=== PATIENT | female | born 2000 | race Caucasian/White ===

== ENCOUNTER 2020-04-06 14:30 | Outpatient (REF) | payer OTHER, SELFPAY ==
[2020-04-07 01:46] LABS: CT PCR NOT DETECTED (Not Detect.); NG PCR NOT DETECTED (Not Detect.)
[2020-04-07 11:24] LABS: BV Int Neg Control Negative (Negative); BV Int Pos Control Positive (Positive)
== END 2020-04-06 14:31 | disposition home or self-care (01) ==
LOC: HO.LAB 14:30
PROVIDERS: Visit Provider Advanced Practice Midwife
DX: Z11.3 Encounter for screening for infections with a predominantly sexual mode of transmission (principal); N89.8 Other specified noninflammatory disorders of vagina; T83.32XA Displacement of intrauterine contraceptive device, initial encounter
CPT/HCPCS: 87480; 87491; 87510; 87591; 87660; 99212

== ENCOUNTER 2020-04-12 13:53 | Outpatient (REF) | payer OTHER, SELFPAY | END 2020-04-12 13:54 | disposition home or self-care (01) | LOC: HO.LAB 13:53 | PROVIDERS: Visit Provider Obstetrics & Gynecology | DX: Z01.419 Encounter for gynecological examination (general) (routine) without abnormal findings (principal); B37.3 Candidiasis of vulva and vagina | CPT/HCPCS: 88142 ==

== ENCOUNTER 2020-04-17 13:16 | Outpatient (REF) | payer OTHER, SELFPAY ==
--- NOTE | 2020-04-17 13:22 | US_ITS ---
EXAMINATION: US PELVIS COMPLETE US TRANSVAGINAL CLINICAL INFORMATION: Displacement of intrauterine contraceptive device. COMPARISON: None TECHNIQUE: Transabdominal and transvaginal ultrasound of the pelvis is performed. FINDINGS: The uterus is anteverted, anteflexed measuring 10.8 cm in length, 3.7 cm in AP and 4.4 cm in transverse dimension. An intrauterine contraceptive device is visualized, however, the arms of the IUD are not extended as expected. Right ovary measures 3.8 x 2.2 x 2.7 cm and volume 11.8 mL. It appears unremarkable. Left ovary measures 3.4 x 2.3 x 2.5 cm and volume 10.2 mL. It appears unremarkable. There is minimal free fluid in lower uterine segment and cervix. No fluid seen in the cul-de-sac. US/US transvaginal IMPRESSION: Intrauterine IUD is noted, however, the arms of the IUD are not well expanded. There is minimal free fluid in the lower uterine segment/cervix. The ovaries are unremarkable.
--- NOTE | 2020-04-17 13:22 | US_ITS ---
EXAMINATION: US PELVIS COMPLETE US TRANSVAGINAL CLINICAL INFORMATION: Displacement of intrauterine contraceptive device. COMPARISON: None TECHNIQUE: Transabdominal and transvaginal ultrasound of the pelvis is performed. FINDINGS: The uterus is anteverted, anteflexed measuring 10.8 cm in length, 3.7 cm in AP and 4.4 cm in transverse dimension. An intrauterine contraceptive device is visualized, however, the arms of the IUD are not extended as expected. Right ovary measures 3.8 x 2.2 x 2.7 cm and volume 11.8 mL. It appears unremarkable. Left ovary measures 3.4 x 2.3 x 2.5 cm and volume 10.2 mL. It appears unremarkable. There is minimal free fluid in lower uterine segment and cervix. No fluid seen in the cul-de-sac. US/US pelvic complete IMPRESSION: Intrauterine IUD is noted, however, the arms of the IUD are not well expanded. There is minimal free fluid in the lower uterine segment/cervix. The ovaries are unremarkable.
== END 2020-04-17 13:17 | disposition home or self-care (01) ==
LOC: HO.US 13:16
PROVIDERS: Visit Provider Advanced Practice Midwife
DX: T83.32XA Displacement of intrauterine contraceptive device, initial encounter (principal)
CPT/HCPCS: 76830; 76856

== ENCOUNTER → 2020-06-15 13:54 | Outpatient (BNVA) | payer OTHER, SELFPAY | PROVIDERS: Visit Provider Physician Assistant ==

== ENCOUNTER → 2020-06-18 08:06 | Outpatient (BNVA) | payer OTHER, SELFPAY | PROVIDERS: Visit Provider Surgery ==

== ENCOUNTER → 2020-07-16 08:51 | Outpatient (BNVA) | payer OTHER, SELFPAY | PROVIDERS: Visit Provider Surgery ==

== ENCOUNTER 2020-07-19 08:04 | Outpatient (REF) | payer OTHER, SELFPAY ==
--- NOTE | ~2020-07-19 | FL_ITS ---
EXAMINATION: XR GI SERIES CLINICAL INFORMATION: Obesity COMPARISON: None TECHNIQUE: Upper GI with air and barium. FINDINGS: Normal swallowing reflex. Normal esophageal motility and distention. No mass or mucosal lesions are seen in the esophagus, stomach or duodenal bulb. Normal passage of the barium into the proximal small bowel. No hiatal hernia. No reflux is seen.. FLUOROSCOPY TIME: 1.1 minute Dose: 231 mCi conn Images: 28 FL/FL upper GI series IMPRESSION: Unremarkable upper GI series. No hiatal hernia is seen. No reflux is seen during the course of the procedure.
--- NOTE | ~2020-07-19 | US_ITS ---
EXAMINATION: US COMPLETE ABDOMEN WITH LIVER ELASTOGRAPHY CLINICAL INFORMATION: Obesity. COMPARISON: CT abdomen 05/04/2017 TECHNIQUE: Real-time imaging of the abdominal viscera. Noninvasive ultrasound liver fibrosis assessment is performed using [facility] point quantification shear wave elastography (pSWE) with a C5-2 MHz transducer. Multiple elastography samples are obtained. FINDINGS: PANCREAS: Majority of the pancreas is obscured by bowel gas. Visualized neck of the pancreas appears unremarkable. ABDOMINAL AORTA: The proximal, middle, and distal aortic segments are normal in caliber. INFERIOR VENA CAVA: Visualized portions are normal. LIVER: Diffuse increased echogenicity. No focal lesions. No intrahepatic biliary duct dilatation. The right lobe measures 15.6 cm in length. The left lobe measures 6.6 cm in length. Portal flow is hepatopedal. Shear wave liver elastography median stiffness is 1.21 m/s (reference: normal median stiffness is 1.3 m/s or less). IQR/median stiffness to assess sampling precision is 0.17 (reference: good quality data set is IQR/median stiffness of 0.15 or less). GALLBLADDER: Normal. The gallbladder is physiologically distended without evidence of stones, sludge, polyps, wall thickening or pericholecystic fluid. COMMON BILE DUCT: Normal in caliber measuring 0.3 cm in diameter. RIGHT KIDNEY: Normal. No hydronephrosis. No renal calculi or focal parenchymal lesions. The kidney measures 11 cm in maximum dimension. LEFT KIDNEY: Normal. No hydronephrosis. No renal calculi or focal parenchymal lesions. The kidney measures 11.2 cm in maximum dimension. SPLEEN: Normal. The spleen measures 9.5 cm in maximum dimension. 1 cm splenule. FREE FLUID: None. US/US abdomen comp w elastography IMPRESSION: 1. There is generalized increase in hepatic echotexture, more commonly seen with hepatic steatosis. No focal hepatic mass or intrahepatic biliary duct dilatation is seen. 2. Liver elastography: Median stiffness of 1.21 m/s. Based on the guidelines, this has high probability of being normal. See attached reference. REFERENCE: Society of Radiologists in Ultrasound Liver Stiffness Thresholds (2020): LIVER STIFFNESS THRESHOLDS: *Liver Stiffness equal or less than 1.3 m/s: High probability of being normal. *Liver Stiffness less than 1.7 m/s: In the absence of other known clinical signs, rules out compensated advanced chronic liver disease. *Liver Stiffness 1.7-2.1 m/s: Suggestive of compensated advanced chronic liver disease but need further test for confirmation. *Liver Stiffness over 2.1 m/s: Rules in compensated advanced chronic liver disease. *Liver Stiffness over 2.4 m/s: Suggestive of clinically significant portal hypertension. QUALITY OF DATA SET: *IQR/Median value equal or less than 0.15 implies a quality data set. *IQR/Median value over 0.15 implies a poor quality data set. SIGNIFICANT CHANGE FROM PRIOR EXAM: Significant change if liver stiffness measurement is 10% or greater from prior exam. OTHER CONSIDERATIONS: The stage of liver fibrosis may be overestimated in the setting of acute hepatitis, liver inflammation, elevated liver function tests, hepatic vascular congestion, obstructive cholestasis, non-fasting state, and infiltrative diseases such as amyloidosis and lymphoma. In some patients with NAFLD, the liver stiffness thresholds for compensated advanced chronic liver disease may be lower. In causes other than viral hepatitis and NAFLD, liver stiffness thresholds are not well established.
--- NOTE | ~2020-07-19 | XR_ITS ---
EXAMINATION: XR CHEST CLINICAL INFORMATION: Morbid obesity. COMPARISON: August 18, 2018 TECHNIQUE: 2 views of the chest were obtained. FINDINGS: No significant abnormality is noted involving the heart, lungs, mediastinum, bony thorax or soft tissues. XR/XR chest 2V IMPRESSION: No acute disease.
== END 2020-07-19 08:05 | disposition home or self-care (01) ==
LOC: HO.US 08:04
PROVIDERS: Visit Provider Surgery
DX: Z01.818 Encounter for other preprocedural examination (principal); E66.01 Morbid (severe) obesity due to excess calories; K21.9 Gastro-esophageal reflux disease without esophagitis
CPT/HCPCS: 71046; 74240; 76705; 76981

== ENCOUNTER → 2020-07-23 08:25 | Outpatient (BNVA) | payer OTHER, SELFPAY | PROVIDERS: Visit Provider Dietitian, Registered ==

== ENCOUNTER → 2020-08-03 07:56 | Outpatient (BNVA) | payer OTHER, SELFPAY | PROVIDERS: Visit Provider Surgery ==

== ENCOUNTER → 2020-08-15 13:01 | Outpatient (REF) | payer OTHER, SELFPAY ==
--- NOTE | 2020-08-15 13:12 | ECG_ITS ---
Test Reason : OBESITY Blood Pressure : / mmHG Vent. Rate : 065 BPM Atrial Rate : 065 BPM P-R Int : 118 ms QRS Dur : 086 ms QT Int : 372 ms P-R-T Axes : 009 015 049 degrees QTc Int : 386 ms Normal sinus rhythm Normal ECG When compared with ECG of 18-AUG-2018 10:26, No significant change was found Referred By: Flash Winston Electronically Signed By:PINKY ZAVALETA
== END ==
LOC: HO.CARD 13:01
PROVIDERS: Visit Provider Surgery
DX: E66.01 Morbid (severe) obesity due to excess calories (principal)
CPT/HCPCS: 93005

== ENCOUNTER 2020-08-28 15:02 | Outpatient (REF) | payer OTHER, SELFPAY ==
[2020-08-28 16:05] LABS: MANUAL DIFF FLAG NO
[2020-08-28 16:17] LABS: Estimated Average Glucose 94 mg/dL; Hemoglobin A1c % 4.9 %
[2020-08-28 16:18] LABS: Basophils Percent Auto 0.4 % (0-2); Eosinophils Absolute Auto 0.1 X10*3/uL (0.0-0.4); Eosinophils Percent Auto 1.3 % (0-4); Hematocrit 44.4 % (37-47); Hemoglobin 14.3 g/dl (12.0-16.0); Imm Gran Abs Auto 0.03 X10*3/uL (0.00-0.03); Imm Gran Pct Auto 0.4 % (0.0-0.4); Lymphocytes Absolute Auto 2.4 X10*3/uL (1.2-4.9); Lymphocytes Percent Auto 29.8 % (20-40); Mean Corpuscular HGB Conc 32.2 g/dl (31.0-35.0); Mean Corpuscular Hemoglobin 29.7 pg (27.0-33.0); Mean Corpuscular Volume 92.3 fL (80-98); Mean Platelet Volume 11.2 fL (9.4-12.3); Monocytes Absolute Auto 0.6 X10*3/uL (0.1-1.2); Monocytes Percent Auto 7.3 % (2-11); Neutrophils Absolute Auto 4.8 X10*3/uL (2.0-8.3); Neutrophils Percent Auto 60.8 % (45-73); Platelet Count 261 X10*3/uL (160-400); Red Blood Count 4.81 X10*6/uL (4.20-5.50); Red Cell Distribution Width 13.2 % (11.0-16.0); White Blood Count 7.9 X10*3/uL (4.8-10.8)
[2020-08-28 16:36] LABS: Alanine Aminotransferase 31 U/L (0-31); Albumin Level 4.4 g/dL (3.5-5.0); Alkaline Phosphatase 77 U/L (39-117); Anion Gap 12 (12-20); Aspartate Amino Transferase 20 U/L (5-31); Bilirubin Total 0.5 mg/dL (0.0-1.0); Blood Urea Nitrogen 12 mg/dL (9-16); C Reactive Protein 0.44 mg/dL (< or = 0.50); Calcium 9.2 mg/dL (8.4-10.2); Carbon Dioxide 26 mmol/L (22-29); Chloride 108 mmol/L (96-108); Cholesterol 164 mg/dL; Estimated Glomerular Filt Rate > 60; Glucose Random 76 mg/dL (60-115); HDL Cholesterol 38 mg/dL; LDL Cholesterol Calculated 103 mg/dl; Potassium 4.1 mmol/L (3.3-5.1); Sodium 142 mmol/L (135-145); Total Protein 7.8 g/dL (6.5-8.0); Triglycerides 116 mg/dL
[2020-08-28 16:57] LABS: Ferritin 39 ng/mL (10-122); TSH reflex Free T4 2.23 uIU/mL (0.32-4.0); Vitamin D 25-OH Total 18.6 ng/mL (>30)
[2020-08-28 17:14] LABS: Folate 13.4 ng/mL (> or = 4.0); Vitamin B12 278 pg/mL (200-900)
[2020-08-29 08:57] LABS: Insulin Level Total 22.2 uIU/mL
[2020-08-29 15:01] LABS: Calcium (PTHI) 9.5 mg/dL (8.6-10.2); PTHI 73 pg/mL (14-64)
[2020-09-01 12:42] LABS: Vitamin A 34 mcg/dL (38-98); Vitamin B1 8 nmol/L (8-30)
[2020-09-04 16:02] LABS: Zinc 65 mcg/dL (60-130)
== END 2020-08-28 15:03 | disposition home or self-care (01) ==
LOC: HO.LAB 15:02
PROVIDERS: Visit Provider Physician Assistant
DX: Z01.818 Encounter for other preprocedural examination (principal); E66.01 Morbid (severe) obesity due to excess calories
CPT/HCPCS: 36415; 80053; 80061; 82306; 82607; 82728; 82746; 83036; 83525; 83970; 84425; 84443; 84590; 84630; 85025; 86140

== ENCOUNTER → 2020-08-29 08:11 | Outpatient (BNVA) | payer OTHER, SELFPAY | PROVIDERS: Visit Provider Surgery ==

== ENCOUNTER → 2020-09-21 08:11 | Outpatient (BNVA) | payer OTHER, SELFPAY | PROVIDERS: Visit Provider Surgery ==

== ENCOUNTER 2020-10-08 09:55 | Outpatient (REF) | payer OTHER, SELFPAY ==
[2020-10-08 11:47] LABS: HBsAGNum1 0.43 S/CO (0.00-0.99); Hepatitis B Surface Antigen Negative (Negative); ~HepC Num1 0.09 S/CO (0.00-0.79); ~Hepatitis C Antibody Nonreactive (Nonreactive)
[2020-10-08 11:51] LABS: HIV AB/AG Nonreactive (Nonreactive); HIV Num 1 0.06 S/CO (0.00-0.99)
[2020-10-08 11:58] LABS: Syphilis Screen Nonreactive (Nonreactive)
[2020-10-08 14:47] LABS: CT PCR NOT DETECTED (Not Detect.); NG PCR NOT DETECTED (Not Detect.)
[2020-10-09 10:47] LABS: BV Int Neg Control Negative (Negative); BV Int Pos Control Positive (Positive)
== END 2020-10-08 09:56 | disposition home or self-care (01) ==
LOC: HO.LAB 09:55
PROVIDERS: Visit Provider Obstetrics & Gynecology
DX: Z11.3 Encounter for screening for infections with a predominantly sexual mode of transmission (principal)
CPT/HCPCS: 36415; 86780; 86803; 87340; 87389; 87480; 87491; 87510; 87591; 87660; 99212

== ENCOUNTER 2020-12-15 09:51 | Emergency (ER) | payer OTHER, SELFPAY ==
[2020-12-15 10:00] VITALS: BP 114/75; PULSE 79; RESP 18; TEMP 37.1; O2SAT 99; BMI 46.6
--- NOTE | 2020-12-15 10:12 | ED_ITS ---
HPI - Allergic Reaction General Chief complaint: Allergic Reaction Stated complaint: RASH Time Seen by Provider: 12/15/20 10:12 Source: patient Mode of arrival: ambulatory Limitations: no limitations History of Present Illness HPI narrative: rash to hands and bottom of feet feel itchy and prickly. Patient with intermittent hives, no new foods, no new medication, no new soaps or detergents. no sob, no lip or tongue swelling MD complaint: allergic reaction and hives Onset (ago): hour(s) Exposure: unknown Symptoms: rash, itching and facial swelling Severity: mild Treatment prior to arrival: none Previous Allergic Reaction History: none Related Data Home Medications Medication Instructions Recorded Confirmed cholecalciferol (vitamin D3) 1,250 PO 06/18/20 06/18/20 mcg (50,000 unit) capsule levonorgestrel 20 mcg/24 hours (6 INTRAUTERINE 10/08/20 yrs) 52 mg intrauterine device Previous Rx's Medication Instructions Recorded cholecalciferol (vitamin D3) 125 125 mcg PO DAILY #30 cap 08/28/20 mcg (5,000 unit) capsule metronidazole 500 mg tablet 500 mg PO BID 7 Days #14 tab 10/09/20 metronidazole 0.75 % vaginal gel 1 appful VAGINAL BEDTIME 5 Days 10/23/20 #70 g diphenhydramine HCl [Benadryl] 25 mg PO QID PRN #20 cap 12/15/20 prednisone 60 mg PO DAILY #12 tab 12/15/20 Allergies Allergy/AdvReac Type Severity Reaction Status Date / Time No Known Allergies Allergy Verified 10/08/20 10:02 [No Known Allergies*] Review of Systems Constitutional: Constitutional: Reports no additional constitutional complaints Eyes: Eyes: Reports no additional eye complaints ENT: Denies dizziness Cardiovascular: Cardiovascular: Reports no additional cardiovascular complaints Respiratory: Respiratory: Reports as per HPI Gastrointestinal: Gastrointestinal: Reports no additional gastrointestinal c omplaints Genitourinary: Genitourinary: Reports no additional female genitourinary complaints Musculoskeletal: Musculoskeletal: Reports no additional musculoskeletal complaints Integumentary/Breasts: Skin/Breast: Denies rash Neurologic: Reports system reviewed and no additional complaints, except as documented, Denies dizziness and Denies Sensory deficit (Neuro) Psychiatric: Psychiatric: Denies anxiety PMFSH Past Medical History Medical History Morbid obesity Morbid obesity with BMI of 50.0-59.9, adult Surgical History Hx of cholecystectomy Family History Family History Father Diabetes mellitus Maternal Grandmother Diabetes mellitus Brother No problems noted. Brother No problems noted. Sister No problems noted. Sister No problems noted. Social History Social History Alcohol intake: current Alcohol intake frequency: holidays/special occasions only Advance Directives: Yes Advance Directives Information Provided: No Advance Directives on File: No Gender identity: female Physical Exam Vital Signs: Vital Signs: Last Vital Signs Temp 98.8 F 12/15/20 10:00 Pulse 79 12/15/20 10:00 Resp 18 12/15/20 10:00 BP 114/75 12/15/20 10:00 Pulse Ox 99 12/15/20 10:00 Body Mass Index 46.6 Const: General: healthy appearing Nutritional Appearance: overweight Orientation/consciousness: oriented to person and patient oriented x3 Limitations: no limitations HENMT: Head: Yes normal to inspection Ears: external ears normal General nose exam: Normal external nose present Mouth: Normal oral and palatal mucosa present and oropharynx normal Throat: Yes posterior oropharynx normal Eyes: General: appearance normal, both eyes and all related structures Neck: Other: supple Neck: Yes normal visual inspection Chest: Chest palpation & inspection: normal inspection of the chest Resp: Auscultation: clear to auscultation bilaterally Cardio: Jugular venous distension: no JVD Rate: regular rate Rhythm: regular rhythm Heart sounds: S1 normal heart sound present and S2 normal heart sound present GI: Inspection: Yes normal to inspection Palpation (GI): Soft to palpation, nontender and No hepatosplenomegaly present Auscultation: normal bowel sounds : General: Yes no CVA tenderness Back/Spine/Pelvis: Back: no CVA tenderness Skin: Other: only one hive at this time, patient has pictures from this morning that showed more diffuse hives. Neuro: General: oriented to person and patient oriented x3 Cranial nerves: Yes CN's II-XII intact bilaterally Motor exam (neuro): 5/5 motor strength present throughout Sensory Exam: No Sensory deficit (Neuro) Extrem: General: Yes normal to inspection Psych: Appearance: grossly normal Course Reevaluation(s) Reevaluation #1: patient with allergic reaction that started yesterday, this morning it was worse. Will start benadryl and prednisone and dc home Time: 10:21 Discharge Plan Discharge Clinical Impression: Allergic reaction, Urticaria Patient Disposition: Home, Self-Care Instructions: Urticaria (ED), Allergies (ED) Prescriptions: New diphenhydramine HCl [Benadryl] 25 mg capsule 25 mg PO QID PRN (Reason: allergic reaction) Qty: 20 RF: 0 prednisone 20 mg tablet 60 mg PO DAILY Qty: 12 RF: 0 No Action cholecalciferol (vitamin D3) 125 mcg (5,000 unit) capsule 125 mcg PO DAILY Qty: 30 RF: 2 metronidazole [Flagyl] 500 mg tablet 500 mg PO BID 7 Days Qty: 14 RF: 0 metronidazole [Metrogel Vaginal] 0.75 % gel 1 appful vaginal BEDTIME 5 Days Qty: 70 RF: 0 cholecalciferol (vitamin D3) 1,250 mcg (50,000 unit) capsule PO RF: 0 Mirena 20 mcg/24 hours (6 yrs) 52 mg intrauterine device intrauterine RF: 0 Referrals: Physician,Unknown [Primary Care Provider] - 1 week
[2020-12-15] MEDS: predniSONE 20 MG TABLET 60 MG PO (10:24)
[2020-12-15] MEDS: diphenhydrAMINE HCL 25 MG TABLET PO (10:24)
== END 2020-12-15 11:06 | disposition home or self-care (01) ==
PROVIDERS: Emergency Provider Emergency Medicine
DX: T78.40XA Allergy, unspecified, initial encounter (principal); L50.9 Urticaria, unspecified; X58.XXXA Exposure to other specified factors, initial encounter; E66.01 Morbid (severe) obesity due to excess calories; Z68.43 Body mass index [BMI] 50.0-59.9, adult
CPT/HCPCS: 99283; 99284; Q0163

== ENCOUNTER 2020-12-16 12:50 | Emergency (ER) | payer OTHER, SELFPAY ==
[2020-12-16 13:20] VITALS: BP 112/53; PULSE 71; RESP 20; TEMP 36.1; O2SAT 98; BMI 46.6
--- NOTE | 2020-12-16 16:30 | ED.GENADULT ---
HPI - General Adult General Chief complaint: Allergic Reaction Stated complaint: HIVES Time Seen by Provider: 12/16/20 16:29 History of Present Illness HPI narrative: Patient seen here yesterday for hives which are coming intermittently and was started on prednisone and Benadryl 25 mg every 6-8 hours, hives are still coming intermittently and she has not had significant improvement, no difficulty breathing no throat swelling no difficulty swallowing Related Data Home Medications Medication Instructions Recorded Confirmed cholecalciferol (vitamin D3) 1,250 PO 06/18/20 06/18/20 mcg (50,000 unit) capsule levonorgestrel 20 mcg/24 hours (6 INTRAUTERINE 10/08/20 yrs) 52 mg intrauterine device Previous Rx's Medication Instructions Recorded cholecalciferol (vitamin D3) 125 125 mcg PO DAILY #30 cap 08/28/20 mcg (5,000 unit) capsule metronidazole 500 mg tablet 500 mg PO BID 7 Days #14 tab 10/09/20 metronidazole 0.75 % vaginal gel 1 appful VAGINAL BEDTIME 5 Days 10/23/20 #70 g diphenhydramine HCl [Benadryl] 25 mg PO QID PRN #20 cap 12/15/20 prednisone 60 mg PO DAILY #12 tab 12/15/20 cetirizine 10 mg PO DAILY PRN #14 tab 12/16/20 famotidine [Pepcid] 20 mg PO BID #14 tab 12/16/20 Allergies Allergy/AdvReac Type Severity Reaction Status Date / Time No Known Allergies Allergy Verified 10/08/20 10:02 [No Known Allergies*] Review of Systems Review of Systems: Positive for skin rash, hives Negatives are no fever no chills no dizziness no weakness no fainting no feeling faint no headache no neck pain no difficulty breathing or swallowing no throat swelling no chest pain no shortness of breath no nausea or vomiting no joint swelling Yes all other systems are reviewed and are negative PMFSH Past Medical History Source: nursing notes reviewed Medical History Morbid obesity Morbid obesity with BMI of 50.0-59.9, adult Surgical History Hx of cholecystectomy Family History Family History Father Diabetes mellitus Maternal Grandmother Diabetes mellitus Brother No problems noted. Brother No problems noted. Sister No problems noted. Sister No problems noted. Social History Social History Alcohol intake: never Patient Tobacco Use Status: Never used Tobacco Advance Directives: Yes Advance Directives Information Provided: No Advance Directives on File: No Patient : No Gender identity: female Physical Exam Vital Signs: Vital Signs: Last Vital Signs Temp 97.0 F 12/16/20 13:20 Pulse 71 12/16/20 13:20 Resp 20 12/16/20 13:20 BP 112/53 L 12/16/20 13:20 Pulse Ox 98 12/16/20 13:20 Body Mass Index 46.6 General appearance no acute distress The eyes are not red, there is no discharge The pharynx is normal well-hydrated, voice is normal no drooling no redness or swelling or exudate Neck is supple Chest is clear to auscultation bilateral with full symmetric equal breath sounds Heart no murmur Extremities full range of motion x4 no joint swelling Skin there is urticarial on arms neck and trunk Course Course Course Narrative: Patient is taking Benadryl and prednisone without significant relief which were prescribed yesterday, she has no other worrisome symptoms there is no trouble breathing or swallowing no swelling anywhere I will increase the antihistamine and add Pepcid Discharge Plan Discharge Clinical Impression: Urticaria Patient Disposition: Home, Self-Care Additional Instructions: As prednisone and low-dose Benadryl were not working we are increasing the antihistamine dose so we gave a Claritin here you can take 50 mg of Benadryl tonight if Claritin does not take care of it We also have added Pepcid which can also help with allergic reaction Follow with primary doctor Return any time for any worse condition or any concerns Prescriptions: New cetirizine 10 mg tablet 10 mg PO DAILY PRN (Reason: Rash and itch) Qty: 14 RF: 0 famotidine [Pepcid] 20 mg tablet 20 mg PO BID Qty: 14 RF: 0 No Action cholecalciferol (vitamin D3) 125 mcg (5,000 unit) capsule 125 mcg PO DAILY Qty: 30 RF: 2 metronidazole [Flagyl] 500 mg tablet 500 mg PO BID 7 Days Qty: 14 RF: 0 metronidazole [Metrogel Vaginal] 0.75 % gel 1 appful vaginal BEDTIME 5 Days Qty: 70 RF: 0 diphenhydramine HCl [Benadryl] 25 mg capsule 25 mg PO QID PRN (Reason: allergic reaction) Qty: 20 RF: 0 prednisone 20 mg tablet 60 mg PO DAILY Qty: 12 RF: 0 cholecalciferol (vitamin D3) 1,250 mcg (50,000 unit) capsule PO RF: 0 Mirena 20 mcg/24 hours (6 yrs) 52 mg intrauterine device intrauterine RF: 0
[2020-12-16] MEDS: Loratadine 10 MG TABLET PO (16:44)
[2020-12-16] MEDS: Famotidine 20 MG TABLET PO (16:44)
== END 2020-12-16 17:21 | disposition home or self-care (01) ==
PROVIDERS: Emergency Provider Emergency Medicine
DX: L50.9 Urticaria, unspecified (principal)
CPT/HCPCS: 99283

== ENCOUNTER 2021-01-10 10:11 | Outpatient (REF) | payer OTHER, SELFPAY ==
[2021-01-10 16:49] LABS: CT PCR DETECTED (Not Detect.); NG PCR NOT DETECTED (Not Detect.)
[2021-01-11 09:26] LABS: BV Int Neg Control Negative (Negative); BV Int Pos Control Positive (Positive)
== END 2021-01-10 10:12 | disposition home or self-care (01) ==
LOC: HO.LAB 10:11
PROVIDERS: Visit Provider Advanced Practice Midwife
DX: Z30.431 Encounter for routine checking of intrauterine contraceptive device (principal); Z11.3 Encounter for screening for infections with a predominantly sexual mode of transmission
CPT/HCPCS: 87480; 87491; 87510; 87591; 87660; 88142; 99212

== ENCOUNTER 2021-05-14 10:43 | Outpatient (REF) | payer OTHER, SELFPAY ==
[2021-05-15 14:18] LABS: CT PCR NOT DETECTED (Not Detect.); NG PCR NOT DETECTED (Not Detect.)
[2021-05-16 09:33] LABS: BV Int Neg Control Negative (Negative); BV Int Pos Control Positive (Positive)
== END 2021-05-14 10:44 | disposition home or self-care (01) ==
LOC: HO.LAB 10:43
PROVIDERS: Visit Provider Advanced Practice Midwife
DX: Z30.431 Encounter for routine checking of intrauterine contraceptive device (principal); Z20.2 Contact with and (suspected) exposure to infections with a predominantly sexual mode of transmission
CPT/HCPCS: 87480; 87491; 87510; 87591; 87660; 99212

== ENCOUNTER 2021-06-18 | Emergency (ER) | payer OTHER, SELFPAY ==
[2021-06-18 00:30] VITALS: BP 132/72; PULSE 74; RESP 16; TEMP 36.8; O2SAT 97; BMI 47.5
--- NOTE | 2021-06-18 00:55 | PC.NURSE ---
pt to room. pt alert, respirations easy, n/l. skin w/d. pt awaiting for md's eval.
[2021-06-18 01:14] LABS: Appearance Urine HAZY; Color Urine ORANGE; Glucose Urine UA 250 MG/DL (NEG); Leukocyte Esterase Urine 2+ (NEG); Nitrite Urine POS (NEG); UACC Culture Trigger YES; Urine Blood TRACE (NEG); Urine Ketones 5 MG/DL (NEG); Urine Protein 2+ MG/DL (NEG-TRACE)
[2021-06-18 01:16] LABS: UPreg QC Valid YES; Urine Pregnancy NEGATIVE (NEGATIVE)
[2021-06-18 01:22] LABS: Bacteria Urine 2+ /LPF; RBC Urine 0-2 /HPF (0); Squamous Epithelial Cell Urine 2+ /LPF; WBC Urine 30-49 /HPF (0-4)
--- NOTE | 2021-06-18 01:46 | ED_ITS ---
HPI - Female Genitourinary General Chief complaint: Urogenital-Female Stated complaint: possible kidney infection Time Seen by Provider: 06/18/21 00:53 Source: patient Mode of arrival: ambulatory History of Present Illness HPI Narrative: 21-year-old female with presentation of burning on urination and frequency and denies any associated fever, chills but has had some nausea without vomiting. Patient is on control and no longer has her periods. She states she just recently completed a course of antibiotics, 5 days, for a UTI but now feels like it may have progressed because her lower back has begun to bother her. Related Data Home Medications Medication Instructions Recorded Confirmed levonorgestrel 20 mcg/24 hours (7 INTRAUTERINE 10/08/20 05/14/21 yrs) 52 mg intrauterine device (Mirena) Previous Rx's Medication Instructions Recorded metronidazole 0.75 % vaginal gel 1 appful VAGINAL BEDTIME 5 Days 05/16/21 (Metrogel Vaginal) #70 g ciprofloxacin HCl 500 mg tablet 500 mg PO Q12H 7 Days #14 tab 06/18/21 Allergies Allergy/AdvReac Type Severity Reaction Status Date / Time No Known Allergies Allergy Verified 06/18/21 00:30 [No Known Allergies*] Review of Systems Review of Systems: Pertinent positives and negatives as stated in HPI 10 point review of systems is otherwise negative. [facility] Past Medical History Source: nursing notes reviewed Medical History Morbid obesity Morbid obesity with BMI of 50.0-59.9, adult Surgical History Hx of cholecystectomy Family History Family History Father Diabetes mellitus Maternal Grandmother Diabetes mellitus Brother No problems noted. Brother No problems noted. Sister No problems noted. Sister No problems noted. Social History Social History Alcohol intake: never Patient Tobacco Use Status: Never used Tobacco Advance Directives: No Advance Directives Information Provided: Yes Patient : No (pt has IUD) Gender identity: Female Physical Exam Vital Signs: Vital Signs: Last Vital Signs Temp 98.2 F 06/18/21 00:30 Pulse 74 06/18/21 00:30 Resp 16 01/25/22 00:30 BP 132/72 06/18/21 00:30 Pulse Ox 97 06/18/21 00:30 BMI result Body Mass Index 47.5 VITAL SIGNS: Reviewed. GENERAL: Well developed, well nourished, in no acute distress. HEAD: Normocephalic/atraumatic EYES: PERRLA, EOMI LUNGS: Normal breath sounds. SpO2<97> CARDIOVASCULAR: Regular rate and rhythm without noted murmurs ABDOMEN: Soft, non-tender, non-distended with bowel sounds, no CVA tenderness MUSCULOSKELETAL: No tenderness, deformities, or effusions noted on gross inspection. EXTREMITIES: No cyanosis, clubbing or edema. SKIN: Inspection of the skin reveals no rashes NEUROLOGIC: Alert and oriented x 4. Strength and sensation to light touch were grossly intact x 4. Course Course Course Narrative: 21-year-old female with history and clinical presentation consistent with recurrent UTI, on review of microbiology there is no information to further direct treatment. Patient will receive IV Rocephin here as on review of her urinalysis it is grossly positive once again. Suspect patient has a component of mild pyelonephritis but is able to tolerate oral intake. On review patient's outpatient chart it appears that she has been on both Macrobid and Bactrim previously and these do not seem to have helped her with her symptoms. She received 1 dose of Rocephin here in the emergency room as well as combination analgesics. She is otherwise discharged home in stable condition with instructions to follow-up with primary care provider. MDM - Female Genitourinary Lab Data Labs: Lab Results 06/18/21 06/18/21 Range/Units 01:06 01:06 Urine Color ORANGE A Urine Appearance HAZY Urine pH 5.0 (5.0-8.0) Ur Specific [place] 1.020 (1.005-1.025) Urine Protein 2+ H (NEG-TRACE) MG/DL Urine Glucose (UA) 250 H (NEG) MG/DL Urine Ketones 5 (NEG) MG/DL Urine Blood TRACE (NEG) Urine Nitrite POS H (NEG) Ur Leukocyte Esterase 2+ H (NEG) Urine RBC 0-2 (0) /HPF Urine WBC 30-49 H (0-4) /HPF Ur Squamous Epith Cells 2+ /LPF Urine Bacteria 2+ /LPF Urine Test NEGATIVE (NEGATIVE) Discharge Plan Discharge Clinical Impression: Pyelonephritis Patient Disposition: Home, Self-Care Instructions: Kidney Infection (ED) Additional Instructions: 1. Complete the entire course of antibiotics. 2. Recommend [id number] Tylenol/ibuprofen as needed for pain control. In addition, increase fluid hydration especially with water. 3. Follow-up with your primary care provider for re-evaluation and follow-up of the urine culture that was conducted here. Return to the ER for worsening symptoms. Prescriptions: New ciprofloxacin HCl 500 mg tablet 500 mg PO Q12H 7 Days Qty: 14 RF: 0 No Action metronidazole [Metrogel Vaginal] 0.75 % gel 1 appful vaginal BEDTIME 5 Days Qty: 70 RF: 0 Mirena 20 mcg/24 hours (6 yrs) 52 mg intrauterine device intrauterine RF: 0
[2021-06-18] MEDS: cefTRIAXone sodium 1 GM in 0.9 % Sodium Chloride 50 ML IV (02:02)
[2021-06-18] MEDS: Acetaminophen 325 MG TABLET 975 MG PO (02:36)
[2021-06-18] MEDS: Ketorolac Tromethamine 30 MG/ML VIAL 15 MG IVPUSH (02:37)
== END 2021-06-18 02:46 | disposition home or self-care (01) ==
PROVIDERS: Emergency Medicine; Emergency Provider Student in an Organized Health Care Education/Training Program
DX: N12 Tubulo-interstitial nephritis, not specified as acute or chronic (principal); R30.0 Dysuria; R35.0 Frequency of micturition; Z79.899 Other long term (current) drug therapy
CPT/HCPCS: 81001; 81025; 87086; 96365; 96375; 99283; 99284; J0696; J1885

== ENCOUNTER 2021-07-03 10:05 | Outpatient (REF) | payer OTHER, SELFPAY ==
[2021-07-03 16:27] LABS: CT PCR NOT DETECTED (Not Detect.); NG PCR NOT DETECTED (Not Detect.)
[2021-07-04 09:19] LABS: BV Int Neg Control Negative (Negative); BV Int Pos Control Positive (Positive)
== END 2021-07-03 10:06 | disposition home or self-care (01) ==
LOC: HO.LAB 10:05
PROVIDERS: Visit Provider Advanced Practice Midwife
DX: Z12.4 Encounter for screening for malignant neoplasm of cervix (principal); E66.01 Morbid (severe) obesity due to excess calories; T83.32XA Displacement of intrauterine contraceptive device, initial encounter; Z20.2 Contact with and (suspected) exposure to infections with a predominantly sexual mode of transmission
CPT/HCPCS: 87480; 87491; 87510; 87591; 87660

== ENCOUNTER 2021-09-02 16:27 | Emergency (ER) | payer OTHER, SELFPAY ==
--- NOTE | ~2021-09-02 | US_ITS ---
EXAMINATION: US PELVIS CLINICAL INFORMATION: Unable to find string of IUD COMPARISON: Pelvic ultrasound 04/17/2020 TECHNIQUE: Ultrasound of the pelvis is performed using both transabdominal and transvaginal transducers along with Doppler. Transvaginal imaging is performed due to inadequate visualization transabdominally. FINDINGS: Uterus: The uterus is anteverted and measures 11.4 x 3.5 x 4.5 cm for a volume of 94 mL. The double wall endometrial thickness is 0.9 mm. An IUD is present in good position within the uterus. There is trace fluid seen within the cervix. The uterus is smooth in contour and has normal myometrial echogenicity. No visible fibroid. Adnexa: Both ovaries are visualized. There is normal color flow to the adnexa. There is no ovarian torsion. There is no pelvic ascites or fluid collection. Right ovary measures 4.2 x 2.2 x 2.5 cm for a volume of 12.1 mL. Left ovary measures 4.0 x 2.2 x 2.3 cm for a volume of 10.6 mL. US/US pelvic and transvaginal IMPRESSION: The IUD is present in the uterus in good position.
[2021-09-02 17:34] VITALS: BP 103/47; PULSE 68; RESP 18; TEMP 36.8; O2SAT 100; BMI 45.7
[2021-09-02 22:00] VITALS: BP 111/54; PULSE 68; RESP 15; O2SAT 100
[2021-09-02 22:24] LABS: Hematocrit 43.9 % (37.0-47.0); Hemoglobin 14.5 g/dl (12.0-16.0); Mean Corpuscular Hemoglobin 30.9 pg (27.0-33.0); Mean Corpuscular Volume 93.4 fL (80.0-98.0); Mean Platelet Volume 10.8 fL (9.4-12.3); Platelet Count 233 X10*3/uL (160-400); Red Cell Distribution Width 13.3 % (11.0-16.0); White Blood Count 10.9 X10*3/uL (4.8-10.8)
--- NOTE | 2021-09-02 22:31 | ED.ABDPAIN ---
HPI - Abdominal Pain General Chief Complaint: Abdominal Pain Stated Complaint: abd pain Time Seen by Provider: 09/02/21 22:31 Source: patient Mode of arrival: ambulatory Limitations: no limitations History of Present Illness HPI narrative: Patient has IUD for last 2 years unable to see the thread per [employer] also, for last 3 days having pain during intercourse with small amount of bleeding seen at urgent care center where they also could not see the thread. Patient came here to be sure about the position of IUD no urinary complaints no history of ovarian cyst Related Data Home Medications Medication Instructions Recorded Confirmed levonorgestrel 20 mcg/24 hours (7 20 mcg INTRAUTERINE DAILY 10/08/20 09/03/21 yrs) 52 mg intrauterine device (Mirena) Allergies Allergy/AdvReac Type Severity Reaction Status Date / Time No Known Allergies Allergy Verified 07/03/21 10:14 [No Known Allergies*] Review of Systems Review of Systems Yes all other systems are reviewed and are negative PMFSH Past Medical History Medical History Morbid obesity Morbid obesity with BMI of 50.0-59.9, adult Surgical History Hx of cholecystectomy Family History Family History Father Diabetes mellitus Maternal Grandmother Diabetes mellitus Brother No problems noted. Brother No problems noted. Sister No problems noted. Sister No problems noted. Social History Social History Alcohol intake: never Patient Tobacco Use Status: Never used Tobacco Use of substances other than those prescribed or required for medical reasons: Yes Substance Use Type: Marijuana Substance Use Frequency: Occasionally Advance Directives: No Advance Directives Information Provided: No Patient : No Gender identity: Female Physical Exam ED Vital Signs: Vital Signs - 24 hr 09/02/21 17:34 09/02/21 22:00 Temperature 98.2 F Pulse Rate 68 68 Respiratory Rate 18 15 Blood Pressure 103/47 L 111/54 L Pulse Oximetry 100 100 BMI result Body Mass Index 45.7 Appearance: Alert. Oriented X3. No acute distress. CVS: Normal heart rate and rhythm. Pulses normal. Respiratory: No respiratory distress. Equal air entry bilateral, Abdomen: Soft, mild discomfort suprapubic area, Bowel sounds are present, no mass palpable, no CVA tenderness Skin: Skin warm and dry. Normal skin color. Normal skin turgor. Neuro: Oriented X 3. MDM - Abdominal Pain MDM Narrative Medical decision making narrative: Patient ultrasound negative for any acute pathology IUD is in place patient pain is during intercourse only and spotting during that time patient advised to follow-up with [employer] patient was treated for UTI last week asymptomatic at this time Lab Data Attestation: I reviewed the patient's lab results. Result diagrams: 09/02/21 22:14 09/02/21 22:14 Labs: Lab Results 09/02/21 09/02/21 Range/Units 22:14 22:14 WBC 10.9 H (4.8-10.8) X10*3/uL RBC 4.70 (4.20-5.50) X10*6/uL Hgb 14.5 (12.0-16.0) g/dl Hct 43.9 (37.0-47.0) % MCV 93.4 (80.0-98.0) fL MCH 30.9 (27.0-33.0) pg MCHC 33.0 (31.0-35.0) g/dl RDW 13.3 (11.0-16.0) % Plt Count 233 (160-400) X10*3/uL MPV 10.8 (9.4-12.3) fL Absolute Nucleated RBC 0.000 (0.0-0.012) X10*3/uL Nucleated RBC % (auto) 0.0 (0.0-0.2) /100WBC Sodium 140 (135-145) mmol/L Potassium 4.1 (3.3-5.1) mmol/L Chloride 106 (96-108) mmol/L Carbon Dioxide 25 (22-29) mmol/L Anion Gap 13 (12-20) BUN 10 (9-16) mg/dL Creatinine 0.83 (0.5-1.4) mg/dL Estim Creat Clear Calc 125.5 Estimated GFR > 60 Random Glucose 87 (60-115) mg/dL Calcium 9.7 (8.4-10.2) mg/dL Total Bilirubin 0.5 (0.0-1.0) mg/dL AST 17 (5-31) U/L ALT 23 (0-31) U/L Alkaline Phosphatase 69 (39-117) U/L Total Protein 7.8 (6.5-8.0) g/dL Albumin 4.5 (3.5-5.0) g/dL Discharge Plan Discharge Clinical Impression: IUD check up, Pelvic pain Patient Disposition: Home, Self-Care Instructions: Pelvic Pain in Women (ED) Additional Instructions: Your IUD is in place follow-up with [employer] for pelvic pain Prescriptions: No Action Mirena 20 mcg/24 hours (6 yrs) 52 mg intrauterine device 20 mcg intrauterine DAILY 0RF
[2021-09-02 22:40] LABS: Alanine Aminotransferase 23 U/L (0-31); Albumin Level 4.5 g/dL (3.5-5.0); Alkaline Phosphatase 69 U/L (39-117); Anion Gap 13 (12-20); Aspartate Amino Transferase 17 U/L (5-31); Bilirubin Total 0.5 mg/dL (0.0-1.0); Blood Urea Nitrogen 10 mg/dL (9-16); Calcium 9.7 mg/dL (8.4-10.2); Carbon Dioxide 25 mmol/L (22-29); Chloride 106 mmol/L (96-108); Creatinine Clr Calc Pharmacy 125.5; Estimated Glomerular Filt Rate > 60; Glucose Random 87 mg/dL (60-115); Potassium 4.1 mmol/L (3.3-5.1); Sodium 140 mmol/L (135-145); Total Protein 7.8 g/dL (6.5-8.0)
== END 2021-09-03 00:17 | disposition home or self-care (01) ==
PROVIDERS: Emergency Provider Internal Medicine; PCP Internal Medicine
DX: Z30.431 Encounter for routine checking of intrauterine contraceptive device (principal); R10.2 Pelvic and perineal pain
CPT/HCPCS: 36415; 76830; 76856; 80053; 85027; 99284

== ENCOUNTER 2021-09-24 22:04 | Emergency (ER) | payer OTHER, SELFPAY ==
--- NOTE | 2021-09-24 14:33 | ECG_ITS ---
Test Reason : ANXIETY/DIZZINESS Blood Pressure : / mmHG Vent. Rate : 094 BPM Atrial Rate : 094 BPM P-R Int : 120 ms QRS Dur : 084 ms QT Int : 338 ms P-R-T Axes : 033 005 065 degrees QTc Int : 422 ms Normal sinus rhythm with sinus arrhythmia Normal ECG When compared with ECG of 15-AUG-2020 13:17, No significant change was found Referred By: Charleen Ely Electronically Signed By:Thaddeus Lambert
[2021-09-24 22:08] VITALS: BP 133/70; PULSE 112; RESP 18; TEMP 36.8; O2SAT 97; BMI 48.4
--- NOTE | 2021-09-24 23:46 | ED_ITS ---
HPI - Anxiety General Chief Complaint: Anxiety Stated Complaint: Anxiety Time Seen by Provider: 09/24/21 22:30 Source: patient Mode of arrival: ambulatory History of Present Illness HPI narrative: 21-year-old female who presents with having smoked marijuana your earlier in the afternoon and then states that afterwards she began experiencing palpitations, ?stomach gurgling?, burping, feeling of tingling in both of her upper extremities that comes and goes, patient attempted to take a warm shower but did not feel any better. Otherwise she denies any recent fever, chills, abdominal pain but does describe a ?pinching sensation under her left ribs? that is not associated with difficulty breathing/new cough or fever/chills. On review of documentation in further corroboration from the patient she is being evaluated for anxiety as well as mood related symptoms and states that she has an appointment with a therapist tomorrow. She denies any suicidal ideation. Related Data Home Medications Medication Instructions Recorded Confirmed levonorgestrel 20 mcg/24 hours (7 20 mcg INTRAUTERINE DAILY 10/08/20 09/03/21 yrs) 52 mg intrauterine device (Mirena) Allergies Allergy/AdvReac Type Severity Reaction Status Date / Time No Known Allergies Allergy Verified 07/03/21 10:14 [No Known Allergies*] Review of Systems Review of Systems: Pertinent positives and negatives as stated HPI 10 point review of systems is otherwise negative. [facility] Past Medical History Source: nursing notes reviewed Medical History Morbid obesity Morbid obesity with BMI of 50.0-59.9, adult Surgical History Hx of cholecystectomy Family History Family History Father Diabetes mellitus Maternal Grandmother Diabetes mellitus Brother No problems noted. Brother No problems noted. Sister No problems noted. Sister No problems noted. Social History Social History Alcohol intake: never Patient Tobacco Use Status: Never used Tobacco Substance Use Type: Marijuana Advance Directives: No Advance Directives Information Provided: No Patient : No Gender identity: Female Physical Exam Vital Signs: Vital Signs: Last Vital Signs Temp 98.2 F 09/24/21 22:08 Pulse 112 H 09/24/21 22:08 Resp 18 09/24/21 22:08 BP 133/70 09/24/21 22:08 Pulse Ox 97 09/24/21 22:08 BMI result Body Mass Index 48.4 VITAL SIGNS: Reviewed. GENERAL: Elevated BMI, Well developed, well nourished, in no acute distress. HEAD: Normocephalic/atraumatic EYES: PERRLA, EOMI EARS: Ext canals without abnormality OROPHARYNX: no oral lesions noted, posterior pharynx clear LUNGS: Normal breath sounds. No adventitious sounds or accessory muscle use. SpO2<97> CARDIOVASCULAR: Regular rate and rhythm without noted murmurs ABDOMEN: Soft, non-tender, non-distended with bowel sounds. MUSCULOSKELETAL: No tenderness, deformities, or effusions noted on gross inspection. EXTREMITIES: No cyanosis, clubbing or edema. SKIN: Inspection of the skin reveals no rashes NEUROLOGIC: Alert and oriented x 4. Strength and sensation to light touch were grossly intact x 4. PSYCH: Tearful, anxious Course Course Course Narrative: This is a 21-year-old female with history and clinical presentation most consistent with anxiety reaction and no history or clinical findings to suggest acute medical condition. Patient will be provided with 50 mg of hydroxyzine, this was all explained to her, she was reassured, she understands the plan of care and is agreeable. Patient is feeling much better after receiving the hydroxyzine and is otherwise discharged home in stable condition with instructions to keep her scheduled appointment with her therapist tomorrow morning. MDM - Anxiety ECG Data Attestation: I personally reviewed and interpreted this ECG as follows: Interpretation: NSR, HR-94, no STEMI, OH/QRS/QTC are within normal limits. Discharge Plan Discharge Clinical Impression: Anxiety, Stress Patient Disposition: Home, Self-Care Instructions: Anxiety (ED), Stress (ED) Additional Instructions: 1. Please keep your scheduled appointment with your therapist tomorrow (Thursday) Return to the ER for worsening symptoms. Prescriptions: No Action Mirena 20 mcg/24 hours (6 yrs) 52 mg intrauterine device 20 mcg intrauterine DAILY 0RF Referrals: Reuben Kate MD [Primary Care Provider] -
[2021-09-24] MEDS: hydrOXYzine HCL 50 MG TABLET PO (23:59)
== END 2021-09-25 00:56 | disposition home or self-care (01) ==
PROVIDERS: Emergency Provider Student in an Organized Health Care Education/Training Program; PCP Internal Medicine
DX: F41.9 Anxiety disorder, unspecified (principal); F12.90 Cannabis use, unspecified, uncomplicated; F43.9 Reaction to severe stress, unspecified; Z79.899 Other long term (current) drug therapy
CPT/HCPCS: 93005; 99283

== ENCOUNTER 2021-10-03 10:56 | Outpatient (REF) | payer OTHER, SELFPAY | END 2021-10-03 10:57 | disposition home or self-care (01) | LOC: HO.LAB 10:56 | PROVIDERS: PCP Internal Medicine; Visit Provider Obstetrics & Gynecology | DX: R10.2 Pelvic and perineal pain (principal); R31.29 Other microscopic hematuria | CPT/HCPCS: 87086; 99212 ==

== ENCOUNTER 2021-10-16 15:04 | Outpatient (REF) | payer OTHER, SELFPAY | END 2021-10-16 15:05 | disposition home or self-care (01) | LOC: HO.LAB 15:04 | PROVIDERS: PCP Internal Medicine; Visit Provider Obstetrics & Gynecology | DX: R10.2 Pelvic and perineal pain (principal); R39.15 Urgency of urination | CPT/HCPCS: 87086; 99212 ==

== ENCOUNTER 2021-10-24 12:58 | Outpatient (REF) | payer OTHER, SELFPAY ==
[2021-10-25 02:31] LABS: CT PCR NOT DETECTED (Not Detect.); NG PCR NOT DETECTED (Not Detect.)
[2021-10-25 08:48] LABS: BV Int Neg Control Negative (Negative); BV Int Pos Control Positive (Positive)
== END 2021-10-24 12:59 | disposition home or self-care (01) ==
LOC: HO.LAB 12:58
PROVIDERS: Visit Provider Advanced Practice Midwife
DX: Z01.419 Encounter for gynecological examination (general) (routine) without abnormal findings (principal); T83.32XA Displacement of intrauterine contraceptive device, initial encounter; R10.2 Pelvic and perineal pain; E66.01 Morbid (severe) obesity due to excess calories; Z20.2 Contact with and (suspected) exposure to infections with a predominantly sexual mode of transmission; Z11.3 Encounter for screening for infections with a predominantly sexual mode of transmission
CPT/HCPCS: 87480; 87491; 87510; 87591; 87660; 99212

== ENCOUNTER 2021-10-29 10:57 | Outpatient (REF) | payer OTHER, SELFPAY ==
[2021-10-30 13:00] LABS: BV Int Neg Control Negative (Negative); BV Int Pos Control Positive (Positive)
== END 2021-10-29 10:58 | disposition home or self-care (01) ==
LOC: HO.LAB 10:57
PROVIDERS: Visit Provider Advanced Practice Midwife
DX: N89.8 Other specified noninflammatory disorders of vagina (principal)
CPT/HCPCS: 87480; 87510; 87660; 99212

== ENCOUNTER → 2021-11-05 15:15 | Outpatient (BNVA) | payer OTHER, SELFPAY | PROVIDERS: Visit Provider Obstetrics & Gynecology | DX: N94.10 Unspecified dyspareunia (principal); T83.32XA Displacement of intrauterine contraceptive device, initial encounter | CPT/HCPCS: 99212 ==

== ENCOUNTER 2021-11-15 10:23 | Day surgery (SDC) | payer OTHER, SELFPAY ==
--- NOTE | 2021-11-13 14:16 | HO.ANESPROP2 ---
HPI - Anesthesia Eval Consult details Narrative: 21yo F for Hysteroscopy, IUD removal PMFSH Active Problems Active Problems: All Active Problems (Updated 11/05/21 @ 16:12 by Kp Guzman MD) IUD threads lost (Acute) IUD (intrauterine device) in place (Acute) Obesity, morbid, BMI 40.0-49.9 (Acute) Urinary urgency (Acute) Pelvic pain (Acute) Cervical cancer screening (Acute) IUD check up (Acute) Screening for STD (sexually transmitted disease) (Acute) Vitamin D deficiency (Acute) Pre-op evaluation (Acute) Adjustment disorder, unspecified (Acute) Morbid obesity (Acute) Vaginal discharge (Acute) IUD strings lost (Acute) Past Medical History Medical History Morbid obesity with BMI of 50.0-59.9, adult Family History Family History Father Diabetes mellitus Maternal Grandmother Diabetes mellitus Brother No problems noted. Brother No problems noted. Sister No problems noted. Sister No problems noted. Surgical History Surgical History Hx of cholecystectomy Social History Social History Alcohol intake: never Patient Tobacco Use Status: Never used Tobacco Substance Use Type: Marijuana Gender identity: Female Meds Allergies Allergy/AdvReac Type Severity Reaction Status Date / Time No Known Allergies Allergy Verified 11/05/21 15:27 [No Known Allergies*] Home Medications Medication Instructions Recorded Confirmed Last Taken Type levonorgestrel 20 mcg/24 hours (7 20 mcg intrauterine DAILY 10/08/20 09/03/21 09/03/21 History yrs) 52 mg intrauterine device (Mirena) Exam Exam Date and Time: November 13, 2021 1416 Pertinent Lab Results Pertinent Lab Results: Laboratory Tests 09/02/21 09/02/21 22:14 22:14 WBC 10.9 H Hgb 14.5 Hct 43.9 Plt Count 233 Sodium 140 Potassium 4.1 Chloride 106 Carbon Dioxide 25 BUN 10 Creatinine 0.83 Narrative Narrative: EKG 09/2021 Vent. Rate : 094 BPM ? ? Atrial Rate : 094 BPM ?? P-R Int : 120 ms? QRS Dur : 084 ms ? ? QT Int : 338 ms ? ? ? P-R-T Axes : 033 005 065 degrees ?? QTc Int : 422 ms ? Normal sinus rhythm with sinus arrhythmia Normal ECG When compared with ECG of 15-AUG-2020 13:17, No significant change was found Assessment and Plan Assessment Anesthesia Assessment: Chart Reviewed
[2021-11-15 10:31] VITALS: BMI 48.1
[2021-11-15 11:21] LABS: UPreg QC Valid YES; Urine Pregnancy NEGATIVE (NEGATIVE)
[2021-11-15 11:46] VITALS: BP 151/95; PULSE 70; RESP 18; TEMP 36.1; O2SAT 97
[2021-11-15] MEDS: Lactated Ringers 1,000 ML 100 ML IVCONT (12:07)
--- NOTE | 2021-11-15 12:19 | MHC.SHP ---
Pre-Procedural Eval Section A Date of Service: 11/15/21 The patient is an INPATIENT: No Changes since office visit: No Cold of Flu in the past 2 weeks, No New Medical Problems, No Changes in Medication and No Patient answered all questions The History & Physical has been completed within 30 days and I have reviewed it.: Yes Section B Chief Complaint: iud removal Allergies: Allergies Allergy/AdvReac Type Severity Reaction Status Date / Time No Known Allergies Allergy Verified 11/05/21 15:27 [No Known Allergies*] Plan Diagnosis/Plan: Unchanged I have reviewed the history and physical and performed a pertinent physical examination on my patient. No changes have occurred unless specified.
--- NOTE | 2021-11-15 13:22 | HO.ANESPROP2 ---
[facility] Active Problems Active Problems: All Active Problems (Updated 11/05/21 @ 16:12 by Kp Guzman MD) IUD threads lost (Acute) IUD (intrauterine device) in place (Acute) Obesity, morbid, BMI 40.0-49.9 (Acute) Urinary urgency (Acute) Pelvic pain (Acute) Cervical cancer screening (Acute) IUD check up (Acute) Screening for STD (sexually transmitted disease) (Acute) Vitamin D deficiency (Acute) Pre-op evaluation (Acute) Adjustment disorder, unspecified (Acute) Morbid obesity (Acute) Vaginal discharge (Acute) IUD strings lost (Acute) Past Medical History Medical History Morbid obesity with BMI of 50.0-59.9, adult Patient : No Family History Family History Father Diabetes mellitus Maternal Grandmother Diabetes mellitus Brother No problems noted. Brother No problems noted. Sister No problems noted. Sister No problems noted. Family history of problems with anesthesia: No Surgical History Surgical History Hx of cholecystectomy History of Problems with Anesthesia: No Social History Social History Alcohol intake: never Patient Tobacco Use Status: Never used Tobacco Substance Use Type: Marijuana Have you been hit, kicked, punched, or otherwise hurt by someone within the past year? If so, by whom?: No Are you DNR?: No Advance Directives: No Advance Directives Information Provided: Yes Patient : No Gender identity: Female Meds Allergies Allergy/AdvReac Type Severity Reaction Status Date / Time No Known Allergies Allergy Verified 11/05/21 15:27 [No Known Allergies*] Active Medications: Current Medications Fentanyl (Fentanyl Citrate/Pf 100 Mcg/2 Ml Vial) 25 mcg IVPUSH Q5M PRN; Protocol PRN Reason: Pain, Moderate (Pain Scale 4-6 Lactated Ringer's (Lr) 1,000 mls @ 100 mls/hr IVCONT .Q10H SLAVA Last Admin: 11/15/21 12:07 Dose: 100 mls/hr Ondansetron HCl (Ondansetron Hcl 4 Mg/2 Ml Vial) 4 mg IVPUSH ONCE PRN PRN Reason: Nausea and Vomiting Oxycodone HCl (Oxycodone Hcl Immed Release 5 Mg Tablet) 5 mg PO ONCE PRN PRN Reason: Pain, Severe (Pain Scale 7-10) Home Medications Medication Instructions Recorded Confirmed Last Taken Type levonorgestrel 20 mcg/24 hours (7 20 mcg intrauterine DAILY 10/08/20 09/03/21 09/03/21 History yrs) 52 mg intrauterine device (Mirena) Exam Exam Date and Time: November 15, 2021 1322 Height,Weight and Vital Signs: Height 5 ft 2 in Weight 119.295 kg Last Vital Signs Temp 97 F 11/15/21 11:46 Pulse 70 11/15/21 11:46 Resp 18 11/15/21 11:46 BP 151/95 H 11/15/21 11:46 Pulse Ox 97 11/15/21 11:46 Pertinent Lab Results Pertinent Lab Results: Laboratory Tests 11/15/21 10:50 Urine Test NEGATIVE Airway Mallampati Class: II TM Dist: >3cm Neck ROM: Full Loose/Missing/Broken Teeth: No Heart: rrr Lungs: clear Assessment and Plan Final Anesthetic Review Family History of Problems with Anesthesia: No History of Problems with Anesthesia: No ASA Class: II Final Preanesthetic Review: No Changes in Pt Med Stat, Meds/Allgs Chart Reviewed, Consent Obtained/Reviewed and Anes Risks/Benef Reviewed Patient Risk: Intermediate Procedure Risk: Low Anesthetic Plan Anesthetic Plan: MAC: Disposition: Standard PACU
--- NOTE | 2021-11-15 13:34 | PC.NURSE ---
dr patel aware pt drink 8 ounce of water at 945 okay to proceed
--- NOTE | 2021-11-15 13:57 | P.OP_ITS ---
Operative Note Operative Note Date of Service: 11/15/21 Narrative: Preop Diagnosis: IUD complication, lost string Operation: Diagnostic Hysteroscopic IUD removal Post Op Diagnosis: same. IUD and string in utero QBL: Minimal Anesthesia: MAC Surgeon: Kp Guzman MD Gate Shear Operator: None Complication: None Pathology: None Procedure: The patient was put in the dorsal lithotomy position, scrubbed, and draped in the usual manner. A sterile speculum was inserted in the patient's vagina. The anterior lip of the cervix was grasped with a single tooth tenaculum. The cervix was dilated up to 5 mm, then the scope was inserted in the patient's uterus. Inspection revealed IUD & its string in utero. A hysteroscopic grasper was introduced through the operative channel, the string grasped and IUD pulled out of the uterine cavity with no complications. At the end of the procedure, all instruments were taken out of the patient uterine and vaginal cavity. The single tooth tenaculum was removed and homeostasis was assured using pressure. The patient tolerated the procedure well and was transferred to the PACU in a stable condition.
--- NOTE | 2021-11-15 13:57 | PM.OP ---
Brief Operative Note Date of Service: 11/15/21 Pre-op diagnosis: IUD complication, lost string Post-op diagnosis: same Procedure: Hysteroscopic IUD removal Surgeon: Kp Guzman MD Anesthesia: MAC Was an Occupational Health Nurse Supervisor used for this Procedure?: No Estimated blood loss (mL): 0 Pathology: other (Endometrial Scrapping. Polyp) Condition: stable Disposition: PACU
[2021-11-15 14:04] VITALS: BP 130/70; PULSE 73; RESP 16; TEMP 37; O2SAT 100
[2021-11-15 14:19] VITALS: BP 131/70; PULSE 64; RESP 18; TEMP 37; O2SAT 100
== END 2021-11-15 14:40 | disposition home or self-care (01) ==
PROVIDERS: Nurse Practitioner; Visit Provider Obstetrics & Gynecology
PROC: 0UJD8ZZ Inspection of Uterus and Cervix, Via Natural or Artificial Opening Endoscopic (ICD-10-PCS; CPT 58555; principal; 2021-11-15 13:20)
DX: T83.32XA Displacement of intrauterine contraceptive device, initial encounter (principal); R10.2 Pelvic and perineal pain; Y76.8 Miscellaneous obstetric and gynecological devices associated with adverse incidents, not elsewhere classified; Y92.9 Unspecified place or not applicable; E66.01 Morbid (severe) obesity due to excess calories; Z68.42 Body mass index [BMI] 45.0-49.9, adult; Z90.49 Acquired absence of other specified parts of digestive tract; F12.90 Cannabis use, unspecified, uncomplicated
CPT/HCPCS: 58562; 81025; J1100; J2250; J2405; J3010

== ENCOUNTER 2021-11-21 13:27 | Outpatient (REF) | payer OTHER, SELFPAY ==
[2021-11-21 21:15] LABS: CT PCR NOT DETECTED (Not Detect.); NG PCR NOT DETECTED (Not Detect.)
== END 2021-11-21 13:28 | disposition home or self-care (01) ==
LOC: HO.LAB 13:27
PROVIDERS: Visit Provider Obstetrics & Gynecology
DX: R19.8 Other specified symptoms and signs involving the digestive system and abdomen (principal)
CPT/HCPCS: 87491; 87591; 99212

== ENCOUNTER 2021-12-01 08:25 | Emergency (ER) | payer OTHER, SELFPAY ==
[2021-12-01 08:34] VITALS: BP 123/58; PULSE 75; RESP 16; TEMP 36.3; O2SAT 99; BMI 46.6
[2021-12-01 08:44] LABS: MANUAL DIFF FLAG NO
[2021-12-01 08:50] LABS: Basophils Percent Auto 0.3 % (0-2); Eosinophils Absolute Auto 0.1 X10*3/uL (0.0-0.4); Eosinophils Percent Auto 0.9 % (0-4); Hematocrit 41.2 % (37.0-47.0); Hemoglobin 13.8 g/dl (12.0-16.0); Imm Gran Abs Auto 0.04 X10*3/uL (0.00-0.03); Imm Gran Pct Auto 0.4 % (0.0-0.4); Lymphocytes Absolute Auto 2.3 X10*3/uL (1.2-4.9); Lymphocytes Percent Auto 23.6 % (20-40); Mean Corpuscular HGB Conc 33.5 g/dl (31.0-35.0); Mean Corpuscular Hemoglobin 30.3 pg (27.0-33.0); Mean Corpuscular Volume 90.5 fL (80.0-98.0); Mean Platelet Volume 10.7 fL (9.4-12.3); Monocytes Absolute Auto 0.7 X10*3/uL (0.1-1.2); Monocytes Percent Auto 6.8 % (2-11); Neutrophils Absolute Auto 6.7 x10*3/uL (2.0-8.3); Platelet Count 227 X10*3/uL (160-400); Red Blood Count 4.55 X10*6/uL (4.20-5.50); Red Cell Distribution Width 13.3 % (11.0-16.0); White Blood Count 9.8 X10*3/uL (4.8-10.8)
[2021-12-01 09:02] LABS: Alanine Aminotransferase 39 U/L (0-31); Albumin Level 4.1 g/dL (3.5-5.0); Alkaline Phosphatase 61 U/L (39-117); Anion Gap 11 (12-20); Aspartate Amino Transferase 17 U/L (5-31); Bilirubin Total 0.8 mg/dL (0.0-1.0); Blood Urea Nitrogen 11 mg/dL (9-16); Calcium 8.9 mg/dL (8.4-10.2); Carbon Dioxide 23 mmol/L (22-29); Chloride 107 mmol/L (96-108); Creatinine Clr Calc Pharmacy 133.5; Estimated Glomerular Filt Rate > 60; Glucose Random 95 mg/dL (60-115); Potassium 4.1 mmol/L (3.3-5.1); Sodium 137 mmol/L (135-145); Total Protein 7.2 g/dL (6.5-8.0)
[2021-12-01 09:43] LABS: Appearance Urine CLEAR; Color Urine YELLOW; Glucose Urine UA NEG (NEG); Leukocyte Esterase Urine NEG (NEG); Nitrite Urine NEG (NEG); Specific Gravity - Urine <= 1.005 (1.005-1.025); Urine Blood NEG (NEG); Urine Ketones NEG (NEG); Urine Protein NEG (NEG-TRACE)
[2021-12-01 09:45] LABS: UPreg QC Valid YES; Urine Pregnancy NEGATIVE (NEGATIVE)
--- NOTE | 2021-12-01 10:02 | ED.ABDPAIN ---
HPI - Abdominal Pain General Chief Complaint: Abdominal Pain Stated Complaint: abd pain Time Seen by Provider: 12/01/21 09:32 Source: patient Mode of arrival: ambulatory Limitations: no limitations History of Present Illness HPI narrative: 21 yo female with history of obesity, s/p cholecystectomy who presents to the ER with intermittent, transient LUQ stabbing pains for the last one week or so. She reports the pains are last a few seconds, are stabbing and mostly occur after she eats. There happening 2-3 times per day. None today. Last was yesterday after she ate a big meal. She denies any nausea, vomiting, diarrhea. She does have a chronically loose stools due to her gallbladder removal. She denies any fever or chills. Denies chance of . No urinary symptoms. No back pain. MD elicited complaint: abdominal pain Pertinent past history: none Onset (ago): week(s) (1) Pain Consistency: intermittent Location: LUQ Severity: moderate Pain scale (0-10): 5 Quality: stabbing Radiation: none Migration to: no migration Exacerbating factors: eating Relieving factors: nothing Associated symptoms: denies other symptoms Related Data Previous Rx's Medication Instructions Recorded metronidazole 0.75 % vaginal gel 1 appful vaginal BEDTIME 5 days 10/25/21 #70 grams clotrimazole 1 % vaginal cream 1 appful vaginal BEDTIME #45 grams 10/29/21 desogestrel 0.15 mg-ethinyl 1 tab PO DAILY 28 days #28 tabs 11/05/21 estradiol 0.03 mg tablet (Apri) Allergies Allergy/AdvReac Type Severity Reaction Status Date / Time No Known Allergies Allergy Verified 11/21/21 13:06 [No Known Allergies*] Review of Systems Review of Systems Constitutional: No Fever, No Chills ENT/Mouth: No sore throat, No Rhinorrhea, No Swallowing Difficulty Cardiovascular: No Chest Pain, No SOB Respiratory: No Cough, No Sputum, No Wheezing, No dyspnea Gastrointestinal: No Nausea, No Vomiting, No Diarrhea, + abdominal Pain, No Hematochezia, No Melena Genitourinary: No Dysuria, No Urinary Frequency, No Hematuria Musculoskeletal: No joint pain, No Myalgias Skin: No Skin Lesions, No rash Neuro: No Weakness, No Numbness, No Dizziness, No Headache Psych: No Anxiety/Panic, No Depression Heme/Lymph: No Bruising, No Lymphadenopathy Endocrine: No Polyuria, No Polydipsia PMFSH Past Medical History Medical History Morbid obesity Morbid obesity with BMI of 50.0-59.9, adult Surgical History Hx of cholecystectomy Family History Family History Father Diabetes mellitus Maternal Grandmother Diabetes mellitus Brother No problems noted. Brother No problems noted. Sister No problems noted. Sister No problems noted. Social History Social History Alcohol intake: never Patient Tobacco Use Status: Never used Tobacco Substance Use Type: Marijuana Advance Directives: No Advance Directives Information Provided: No Gender identity: Female Physical Exam ED Vital Signs: Vital Signs - 24 hr 12/01/21 08:34 Temperature 97.3 F Pulse Rate 75 Respiratory Rate 16 Blood Pressure 123/58 L Pulse Oximetry 99 Oxygen Delivery Method Room Air BMI result Body Mass Index 46.6 Appearance: Alert. Oriented X3. No acute distress. Eyes: Pupils equal, round and reactive to light. ENT: Pharynx normal. Neck: Normal inspection. Neck supple. CVS: Normal heart rate and rhythm. Pulses normal. Respiratory: No respiratory distress. Breath sounds normal. Abdomen: Obese, Soft and nontender. +BS x4 Skin: Skin warm and dry. Normal skin color. Normal skin turgor. No rashes. Extremities: No lower extremity edema. Neuro: Oriented X 3. Grossly normal, nonfocal Course Course Course Narrative: 21-year-old female presents to the ER with intermittent, stabbing, brief episodes of left upper quadrant pain that occur mostly after eating for the last 1 week. She has no tenderness on examination. Her labs are unremarkable and is negative. Most likely related to food sensitivity or meal sizes. Encouraged to keep a food diary, start TUMS and follow up with GI if her symptoms persist. She is stable for d/c home. MDM - Abdominal Pain Lab Data Result diagrams: 12/01/21 08:40 12/01/21 08:40 Labs: Lab Results 12/01/21 12/01/21 12/01/21 Range/Units 08:40 08:40 09:33 WBC 9.8 (4.8-10.8) X10*3/uL RBC 4.55 (4.20-5.50) X10*6/uL Hgb 13.8 (12.0-16.0) g/dl Hct 41.2 (37.0-47.0) % MCV 90.5 (80.0-98.0) fL MCH 30.3 (27.0-33.0) pg MCHC 33.5 (31.0-35.0) g/dl RDW 13.3 (11.0-16.0) % Plt Count 227 (160-400) X10*3/uL MPV 10.7 (9.4-12.3) fL Immature Gran % (Auto) 0.4 (0.0-0.4) % Neut % (Auto) 68.0 (45-73) % Lymph % (Auto) 23.6 (20-40) % [place] % (Auto) 6.8 (2-11) % Eos % (Auto) 0.9 (0-4) % Baso % (Auto) 0.3 (0-2) % Lymph # (Auto) 2.3 (1.2-4.9) X10*3/uL [place] # (Auto) 0.7 (0.1-1.2) X10*3/uL Eos # (Auto) 0.1 (0.0-0.4) X10*3/uL Baso # (Auto) 0.0 (0.0-0.2) X10*3/uL Abs Immat Gran (auto) 0.04 H (0.00-0.03) X10*3/uL Absolute Neuts (auto) 6.7 (2.0-8.3) x10*3/uL Absolute Nucleated RBC 0.000 (0.0-0.012) X10*3/uL Nucleated RBC % (auto) 0.0 (0.0-0.2) /100WBC Sodium 137 (135-145) mmol/L Potassium 4.1 (3.3-5.1) mmol/L Chloride 107 (96-108) mmol/L Carbon Dioxide 23 (22-29) mmol/L Anion Gap 11 L (12-20) BUN 11 (9-16) mg/dL Creatinine 0.79 (0.5-1.4) mg/dL Estim Creat Clear Calc 133.5 Estimated GFR > 60 Random Glucose 95 (60-115) mg/dL Calcium 8.9 D (8.4-10.2) mg/dL Total Bilirubin 0.8 (0.0-1.0) mg/dL AST 17 (5-31) U/L ALT 39 H (0-31) U/L Alkaline Phosphatase 61 (39-117) U/L Total Protein 7.2 (6.5-8.0) g/dL Albumin 4.1 (3.5-5.0) g/dL Urine Color YELLOW Urine Appearance CLEAR Urine pH 6.0 (5.0-8.0) Ur Specific [place] <= 1.005 (1.005-1.025) Urine Protein NEG (NEG-TRACE) MG/DL Urine Glucose (UA) NEG (NEG) MG/DL Urine Ketones NEG (NEG) MG/DL Urine Blood NEG (NEG) Urine Nitrite NEG (NEG) Ur Leukocyte Esterase NEG (NEG) Urine Test (NEGATIVE) 12/01/21 Range/Units 09:33 WBC (4.8-10.8) X10*3/uL RBC (4.20-5.50) X10*6/uL Hgb (12.0-16.0) g/dl Hct (37.0-47.0) % MCV (80.0-98.0) fL MCH (27.0-33.0) pg MCHC (31.0-35.0) g/dl RDW (11.0-16.0) % Plt Count (160-400) X10*3/uL MPV (9.4-12.3) fL Immature Gran % (Auto) (0.0-0.4) % Neut % (Auto) (45-73) % Lymph % (Auto) (20-40) % [place] % (Auto) (2-11) % Eos % (Auto) (0-4) % Baso % (Auto) (0-2) % Lymph # (Auto) (1.2-4.9) X10*3/uL [place] # (Auto) (0.1-1.2) X10*3/uL Eos # (Auto) (0.0-0.4) X10*3/uL Baso # (Auto) (0.0-0.2) X10*3/uL Abs Immat Gran (auto) (0.00-0.03) X10*3/uL Absolute Neuts (auto) (2.0-8.3) x10*3/uL Absolute Nucleated RBC (0.0-0.012) X10*3/uL Nucleated RBC % (auto) (0.0-0.2) /100WBC Sodium (135-145) mmol/L Potassium (3.3-5.1) mmol/L Chloride (96-108) mmol/L Carbon Dioxide (22-29) mmol/L Anion Gap (12-20) BUN (9-16) mg/dL Creatinine (0.5-1.4) mg/dL Estim Creat Clear Calc Estimated GFR Random Glucose (60-115) mg/dL Calcium (8.4-10.2) mg/dL Total Bilirubin (0.0-1.0) mg/dL AST (5-31) U/L ALT (0-31) U/L Alkaline Phosphatase (39-117) U/L Total Protein (6.5-8.0) g/dL Albumin (3.5-5.0) g/dL Urine Color Urine Appearance Urine pH (5.0-8.0) Ur Specific [place] (1.005-1.025) Urine Protein (NEG-TRACE) MG/DL Urine Glucose (UA) (NEG) MG/DL Urine Ketones (NEG) MG/DL Urine Blood (NEG) Urine Nitrite (NEG) Ur Leukocyte Esterase (NEG) Urine Test NEGATIVE (NEGATIVE) Discharge Plan Discharge Clinical Impression: Abdominal pain Patient Disposition: Home, Self-Care Instructions: Abdominal Pain (ED) Additional Instructions: Your lab workup today was unremarkable. Your pain could be due to food sensitivities or possible gastritis which is and irritation and inflammation of your stomach lining. Start taking over the counter TUMS or Prilosec for this. Keep a food diary. Stick to a bland diet. Avoid foods high in acid, avoid alcohol and NSAID medications like Aleve, Motrin, Advil or ibuprofen. Follow up with your doctor as needed. Follow up with GI doctor if you symptoms persist despite dietary modifications and medication. If you develop new or worsening symptoms call 911 or come back to the ER for further evaluation. Prescriptions: No Action metronidazole 0.75 % gel 1 appful vaginal BEDTIME 5 Days Qty: 70 0RF clotrimazole 1 % cream 1 appful vaginal BEDTIME Qty: 45 1RF desogestrel-ethinyl estradiol [Apri] 0.15-0.03 mg tablet 1 tab PO DAILY 28 Days Qty: 28 2RF Referrals: Erika Conde MD [Physician] - (LUQ Pain)
== END 2021-12-01 10:18 | disposition home or self-care (01) ==
PROVIDERS: Emergency Provider Emergency Medicine
DX: R10.12 Left upper quadrant pain (principal); E66.01 Morbid (severe) obesity due to excess calories; F12.90 Cannabis use, unspecified, uncomplicated; Z90.49 Acquired absence of other specified parts of digestive tract
CPT/HCPCS: 36415; 80053; 81003; 81025; 85025; 99282; 99283

== ENCOUNTER 2021-12-05 10:57 | Emergency (ER) | payer OTHER, SELFPAY ==
[2021-12-05 11:14] VITALS: BP 115/59; PULSE 72; RESP 18; TEMP 36.2; O2SAT 98; BMI 45.7
[2021-12-05 11:29] LABS: MANUAL DIFF FLAG NO
[2021-12-05 11:31] LABS: Basophils Percent Auto 0.2 % (0-2); Eosinophils Absolute Auto 0.1 X10*3/uL (0.0-0.4); Eosinophils Percent Auto 1.2 % (0-4); Hematocrit 41.3 % (37.0-47.0); Hemoglobin 13.9 g/dl (12.0-16.0); Imm Gran Abs Auto 0.02 X10*3/uL (0.00-0.03); Imm Gran Pct Auto 0.2 % (0.0-0.4); Lymphocytes Absolute Auto 2.5 X10*3/uL (1.2-4.9); Lymphocytes Percent Auto 29.8 % (20-40); Mean Corpuscular HGB Conc 33.7 g/dl (31.0-35.0); Mean Corpuscular Hemoglobin 30.5 pg (27.0-33.0); Mean Corpuscular Volume 90.8 fL (80.0-98.0); Mean Platelet Volume 10.8 fL (9.4-12.3); Monocytes Absolute Auto 0.6 X10*3/uL (0.1-1.2); Monocytes Percent Auto 7.1 % (2-11); Neutrophils Absolute Auto 5.1 x10*3/uL (2.0-8.3); Neutrophils Percent Auto 61.5 % (45-73); Platelet Count 240 X10*3/uL (160-400); Red Blood Count 4.55 X10*6/uL (4.20-5.50); Red Cell Distribution Width 13.1 % (11.0-16.0); White Blood Count 8.3 X10*3/uL (4.8-10.8)
[2021-12-05 11:51] LABS: Anion Gap 12 (12-20); Blood Urea Nitrogen 10 mg/dL (9-16); Calcium 9.2 mg/dL (8.4-10.2); Carbon Dioxide 24 mmol/L (22-29); Chloride 106 mmol/L (96-108); Creatinine Clr Calc Pharmacy 130.1; Estimated Glomerular Filt Rate > 60; Glucose Random 94 mg/dL (60-115); Potassium 3.8 mmol/L (3.3-5.1); Sodium 138 mmol/L (135-145)
[2021-12-05 11:57] LABS: Appearance Urine CLEAR; Color Urine YELLOW; Glucose Urine UA NEG (NEG); Leukocyte Esterase Urine NEG (NEG); Nitrite Urine NEG (NEG); Specific Gravity - Urine 1.025 (1.005-1.025); UACC Culture Trigger NO; Urine Blood 3+ (NEG); Urine Ketones 40 MG/DL (NEG); Urine Protein NEG (NEG-TRACE)
[2021-12-05 11:58] LABS: UPreg QC Valid YES; Urine Pregnancy NEGATIVE (NEGATIVE)
[2021-12-05 12:16] LABS: Amorphous Sediment Urine 2+ /LPF; Squamous Epithelial Cell Urine 1+ /LPF
[2021-12-05 12:17] LABS: Bacteria Urine TRACE /LPF; RBC Urine 0-2 /HPF (0)
--- NOTE | 2021-12-05 17:01 | ED_ITS ---
HPI - Abdominal Pain General Chief Complaint: Abdominal Pain Stated Complaint: Abd pain Time Seen by Provider: 12/05/21 16:44 Source: patient Mode of arrival: ambulatory Limitations: no limitations History of Present Illness HPI narrative: Patient presents emergency department for evaluation of abdominal pain. She states that she was seen here 4 days ago for left upper quadrant abdominal pain that was very brief and episodic lasting about only a minute at a time, described as a sharp and stabbing pain. She was advised that she may have gastritis, was advised to trial [id number] times. She states that she has tried Tums but this is not helping. Since yesterday she has been experiencing pain to the right upper quadrant. Again described as very brief lasting only 1 minute, but states it is different than the pain she felt on the left, it is described more as a aching. She reports that she has had her gallbladder removed. She is unable to identify any foods that seem to exacerbate her symptoms. She has an appointment to see Gastroenterology in 1 week. She denies fevers, chills, nausea, vomiting, chest pain, shortness of breath, dysuria, urinary frequency. Related Data Previous Rx's Medication Instructions Recorded metronidazole 0.75 % vaginal gel 1 appful vaginal BEDTIME 5 days 10/25/21 #70 grams clotrimazole 1 % vaginal cream 1 appful vaginal BEDTIME #45 grams 10/29/21 desogestrel 0.15 mg-ethinyl 1 tab PO DAILY 28 days #28 tabs 11/05/21 estradiol 0.03 mg tablet (Apri) Allergies Allergy/AdvReac Type Severity Reaction Status Date / Time No Known Allergies Allergy Verified 11/21/21 13:06 [No Known Allergies*] Review of Systems Review of Systems Constitutional : No Weight loss, No Fever, No Chills ENT/Mouth :? No sore throat, No Rhinorrhea Eyes: No Swelling, No Redness Cardiovascular : No Chest Pain, No SOB, No Edema Respiratory : No Cough, No Sputum, No Wheezing Gastrointestinal : No Nausea, no Vomiting, no Diarrhea, positive abdominal pain, No Hematochezia, No Melena Genitourinary : No Dysuria, No Urinary Frequency, No Hematuria, No Urgency? Musculoskeletal : No joint pain, No Myalgias, No Joint Swelling Skin : No Skin Lesions, No rash Neuro : No Weakness, No Numbness, No Dizziness, No Headache Psych : No Anxiety/Panic, No Depression Heme/Lymph: No Bruising, No Lymphadenopathy Endocrine : No Polyuria, No Polydipsia Yes all other systems are reviewed and are negative [facility] [place] Past Medical History Attestation statement: The following information was validated with the patient. Source: old records reviewed Medical History Morbid obesity Morbid obesity with BMI of 50.0-59.9, adult Surgical History Hx of cholecystectomy Family History Family History Father Diabetes mellitus Maternal Grandmother Diabetes mellitus Brother No problems noted. Brother No problems noted. Sister No problems noted. Sister No problems noted. Social History Social History Alcohol intake: never Patient Tobacco Use Status: Never used Tobacco Substance Use Type: Marijuana Advance Directives: No Advance Directives Information Provided: No Gender identity: Female Physical Exam ED Vital Signs: Vital Signs - 24 hr 12/05/21 11:14 Temperature 97.2 F Pulse Rate 72 Respiratory Rate 18 Blood Pressure 115/59 L Pulse Oximetry 98 Oxygen Delivery Method Room Air BMI result Body Mass Index 45.7 Vital signs have been reviewed as normal and appeared to be correct. Blood pressure normal.? Heart rate normal.? Respiration rate normal. Temperature normal.? Oxygen saturation normal. Appearance: Alert.?Oriented to person, place and time. No acute distress.?Normal affect. Eyes: Pupils equal, round and reactive to light.? ENT: Pharynx normal.?? Neck: Normal inspection.? Neck supple.?? CVS: Heart sounds normal. Normal heart rate and rhythm.? Pulses normal.?? Respiratory: No respiratory distress.? Lung sounds clear to auscultation bilaterally?? Abdomen: Soft and non-tender. Normoactive bowel sounds. Skin: Skin warm and dry.? Normal skin color.? Extremities: No lower extremity edema.? Neuro: Moves all extremities spontaneously. Sensation intact bilaterally. CN II- XII intact. No focal neuro deficits. Ambulates with normal steady gait. Course Course Course Narrative: Patient is a 21-year-old female with significant past medical history presenting to emergency department for evaluation of intermittent brief abdominal pain previously occurring on the left, but now it is occurring in the right upper quadrant. Abdominal exam is benign. Denies pain at this time. The she has trialed Tums but has not trialed any Prilosec. Has not kept a food diary. Urinalysis is overall unremarkable does show hematuria but she reports she is currently menstruating, is negative. CBC and CMP are unremarkable. Patient advised to trial Prilosec, outpatient follow-up with gastroenterology as scheduled, patient discharged home in stable condition, hemodynamically stable and well-appearing. MDM - Abdominal Pain Medical Records Attestation: I reviewed the patient's medical records. Lab Data Attestation: I reviewed the patient's lab results. Result diagrams: 12/05/21 11:24 12/05/21 11:24 Labs: Lab Results 12/05/21 12/05/21 12/05/21 Range/Units 11:24 11:24 11:49 WBC 8.3 (4.8-10.8) X10*3/uL RBC 4.55 (4.20-5.50) X10*6/uL Hgb 13.9 (12.0-16.0) g/dl Hct 41.3 (37.0-47.0) % MCV 90.8 (80.0-98.0) fL MCH 30.5 (27.0-33.0) pg MCHC 33.7 (31.0-35.0) g/dl RDW 13.1 (11.0-16.0) % Plt Count 240 (160-400) X10*3/uL MPV 10.8 (9.4-12.3) fL Immature Gran % (Auto) 0.2 (0.0-0.4) % Neut % (Auto) 61.5 (45-73) % Lymph % (Auto) 29.8 (20-40) % [place] % (Auto) 7.1 (2-11) % Eos % (Auto) 1.2 (0-4) % Baso % (Auto) 0.2 (0-2) % Lymph # (Auto) 2.5 (1.2-4.9) X10*3/uL [place] # (Auto) 0.6 (0.1-1.2) X10*3/uL Eos # (Auto) 0.1 (0.0-0.4) X10*3/uL Baso # (Auto) 0.0 (0.0-0.2) X10*3/uL Abs Immat Gran (auto) 0.02 (0.00-0.03) X10*3/uL Absolute Neuts (auto) 5.1 (2.0-8.3) x10*3/uL Absolute Nucleated RBC 0.000 (0.0-0.012) X10*3/uL Nucleated RBC % (auto) 0.0 (0.0-0.2) /100WBC Sodium 138 (135-145) mmol/L Potassium 3.8 (3.3-5.1) mmol/L Chloride 106 (96-108) mmol/L Carbon Dioxide 24 (22-29) mmol/L Anion Gap 12 (12-20) BUN 10 (9-16) mg/dL Creatinine 0.80 (0.5-1.4) mg/dL Estim Creat Clear Calc 130.1 Estimated GFR > 60 Random Glucose 94 (60-115) mg/dL Calcium 9.2 (8.4-10.2) mg/dL Total Bilirubin 0.6 (0.0-1.0) mg/dL Direct Bilirubin 0.2 (0.0-0.5) mg/dL AST 23 (5-31) U/L ALT 40 H (0-31) U/L Alkaline Phosphatase 60 (39-117) U/L Total Protein 7.9 (6.5-8.0) g/dL Albumin 4.5 (3.5-5.0) g/dL Lipase 13 (8-78) U/L Urine Color YELLOW Urine Appearance CLEAR Urine pH 6.0 (5.0-8.0) Ur Specific [place] 1.025 (1.005-1.025) Urine Protein NEG (NEG-TRACE) MG/DL Urine Glucose (UA) NEG (NEG) MG/DL Urine Ketones 40 (NEG) MG/DL Urine Blood 3+ H (NEG) Urine Nitrite NEG (NEG) Ur Leukocyte Esterase NEG (NEG) Urine RBC 0-2 (0) /HPF Urine WBC 1-4 (0-4) /HPF Ur Squamous Epith Cells 1+ /LPF Amorphous Sediment 2+ /LPF Urine Bacteria TRACE /LPF Urine Test (NEGATIVE) 12/05/21 Range/Units 11:49 WBC (4.8-10.8) X10*3/uL RBC (4.20-5.50) X10*6/uL Hgb (12.0-16.0) g/dl Hct (37.0-47.0) % MCV (80.0-98.0) fL MCH (27.0-33.0) pg MCHC (31.0-35.0) g/dl RDW (11.0-16.0) % Plt Count (160-400) X10*3/uL MPV (9.4-12.3) fL Immature Gran % (Auto) (0.0-0.4) % Neut % (Auto) (45-73) % Lymph % (Auto) (20-40) % [place] % (Auto) (2-11) % Eos % (Auto) (0-4) % Baso % (Auto) (0-2) % Lymph # (Auto) (1.2-4.9) X10*3/uL [place] # (Auto) (0.1-1.2) X10*3/uL Eos # (Auto) (0.0-0.4) X10*3/uL Baso # (Auto) (0.0-0.2) X10*3/uL Abs Immat Gran (auto) (0.00-0.03) X10*3/uL Absolute Neuts (auto) (2.0-8.3) x10*3/uL Absolute Nucleated RBC (0.0-0.012) X10*3/uL Nucleated RBC % (auto) (0.0-0.2) /100WBC Sodium (135-145) mmol/L Potassium (3.3-5.1) mmol/L Chloride (96-108) mmol/L Carbon Dioxide (22-29) mmol/L Anion Gap (12-20) BUN (9-16) mg/dL Creatinine (0.5-1.4) mg/dL Estim Creat Clear Calc Estimated GFR Random Glucose (60-115) mg/dL Calcium (8.4-10.2) mg/dL Total Bilirubin (0.0-1.0) mg/dL Direct Bilirubin (0.0-0.5) mg/dL AST (5-31) U/L ALT (0-31) U/L Alkaline Phosphatase (39-117) U/L Total Protein (6.5-8.0) g/dL Albumin (3.5-5.0) g/dL Lipase (8-78) U/L Urine Color Urine Appearance Urine pH (5.0-8.0) Ur Specific [place] (1.005-1.025) Urine Protein (NEG-TRACE) MG/DL Urine Glucose (UA) (NEG) MG/DL Urine Ketones (NEG) MG/DL Urine Blood (NEG) Urine Nitrite (NEG) Ur Leukocyte Esterase (NEG) Urine RBC (0) /HPF Urine WBC (0-4) /HPF Ur Squamous Epith Cells /LPF Amorphous Sediment /LPF Urine Bacteria /LPF Urine Test NEGATIVE (NEGATIVE) Discharge Plan Discharge Clinical Impression: Abdominal pain Patient Disposition: Home, Self-Care Instructions: Abdominal Pain (ED) Additional Instructions: Be sure to attend your scheduled gastroenterology doctor. As we discussed, please keep a food diary and documentation of went your pain started as and when it ends. Continue following a bland diet, avoiding highly acidic foods, alcohol, [id number] pain medications such as Aleve, or Motrin. Purchase Prilosec, over the counter, and take as instructed. You may return to the emergency department any new or worsening symptoms or concerns such as severe worsening pain/persistent pain, nausea persistent vomiting, fevers, chills, chest pain, shortness of breath. Prescriptions: No Action metronidazole 0.75 % gel 1 appful vaginal BEDTIME 5 Days Qty: 70 0RF clotrimazole 1 % cream 1 appful vaginal BEDTIME Qty: 45 1RF desogestrel-ethinyl estradiol [Apri] 0.15-0.03 mg tablet 1 tab PO DAILY 28 Days Qty: 28 2RF Interventions: ED Discharge Assessment Last Done: 12/05/21 17:44 Discharge Date/Time: 12/05/21 17:45
[2021-12-05 17:24] LABS: Alanine Aminotransferase 40 U/L (0-31); Albumin Level 4.5 g/dL (3.5-5.0); Alkaline Phosphatase 60 U/L (39-117); Aspartate Amino Transferase 23 U/L (5-31); Bilirubin Direct 0.2 mg/dL (0.0-0.5); Bilirubin Total 0.6 mg/dL (0.0-1.0); Lipase 13 U/L (8-78); Total Protein 7.9 g/dL (6.5-8.0)
== END 2021-12-05 17:45 | disposition home or self-care (01) ==
PROVIDERS: Nurse Practitioner Family; Emergency Provider Emergency Medicine
DX: R10.12 Left upper quadrant pain (principal); Z79.899 Other long term (current) drug therapy
CPT/HCPCS: 36415; 80048; 80076; 81001; 81025; 83690; 85025; 99282; 99283

== ENCOUNTER → 2021-12-11 12:14 | Outpatient (BNVA) | payer OTHER, SELFPAY | PROVIDERS: Visit Provider Physician Assistant | DX: R10.9 Unspecified abdominal pain (principal); R74.8 Abnormal levels of other serum enzymes; G89.29 Other chronic pain | CPT/HCPCS: 99202; 99212 ==

== ENCOUNTER 2022-01-09 09:53 | Outpatient (REF) | payer OTHER, SELFPAY ==
--- NOTE | ~2022-01-09 | US_ITS ---
EXAMINATION: US ABDOMEN LIMITED CLINICAL INFORMATION: Unspecified abdominal pain. COMPARISON: Ultrasound abdomen complete 07/19/2020 and 05/04/2017. MRI abdomen 05/05/2017. CT abdomen and pelvis 05/04/2017. TECHNIQUE: Real-time imaging of the right upper quadrant abdominal viscera. FINDINGS: PANCREAS: Normal. LIVER: The liver is normal in size. The liver contour is normal. The liver is diffusely echogenic without focal lesion No focal hepatic lesion. There is no intrahepatic biliary duct dilatation seen. GALLBLADDER: Surgically absent. COMMON BILE DUCT: Normal in caliber measuring 0.2 cm in diameter. RIGHT KIDNEY: Normal. No hydronephrosis. No renal calculi or focal parenchymal lesions. The kidney measures 10.4 cm in maximum dimension. FREE FLUID: None. US/US abdomen limited IMPRESSION: Diffuse hepatic steatosis without focal lesion. Gallbladder has been surgically removed. Visualized pancreas, CBD and right kidney are unremarkable.
== END 2022-01-09 09:54 | disposition home or self-care (01) ==
LOC: HO.HMGCX 09:53
PROVIDERS: Visit Provider Physician Assistant
DX: R10.9 Unspecified abdominal pain (principal); G89.29 Other chronic pain
CPT/HCPCS: 76705

== ENCOUNTER → 2022-03-13 10:15 | Outpatient (BNVA) | payer OTHER, SELFPAY | PROVIDERS: Visit Provider Obstetrics & Gynecology | DX: Z30.09 Encounter for other general counseling and advice on contraception (principal) | CPT/HCPCS: 99212 ==

== ENCOUNTER 2022-05-13 10:49 | Outpatient (REF) | payer OTHER, SELFPAY ==
[2022-05-14 08:06] LABS: CT PCR NOT DETECTED (Not Detect.); NG PCR NOT DETECTED (Not Detect.)
== END 2022-05-13 10:50 | disposition home or self-care (01) ==
LOC: HO.LNP 10:49
PROVIDERS: Visit Provider Obstetrics & Gynecology
DX: Z11.3 Encounter for screening for infections with a predominantly sexual mode of transmission (principal); L68.0 Hirsutism; K62.89 Other specified diseases of anus and rectum; N80.9 Endometriosis, unspecified
CPT/HCPCS: 87491; 87591; 99212

== ENCOUNTER 2022-05-20 12:46 | Outpatient (REF) | payer OTHER, SELFPAY ==
[2022-05-20 15:47] LABS: Thyroid Stimulating Hormone 1.51 uIU/mL (0.32-4.0)
[2022-05-22 08:03] LABS: Prolactin 8.5 ng/mL
[2022-05-27 19:48] LABS: Testosterone, Free 5.1 pg/mL (0.1-6.4); Testosterone, Total 39 ng/dL (2-45)
== END 2022-05-20 12:47 | disposition home or self-care (01) ==
LOC: HO.LAB 12:46
PROVIDERS: Visit Provider Obstetrics & Gynecology
DX: L68.0 Hirsutism (principal)
CPT/HCPCS: 36415; 83498; 84146; 84402; 84403; 84443

== ENCOUNTER 2022-07-02 15:50 | Outpatient (REF) | payer OTHER, SELFPAY ==
--- NOTE | ~2022-07-02 | US_ITS ---
EXAMINATION: US PELVIS CLINICAL INFORMATION: Hirsutism. COMPARISON: Pelvic ultrasound 09/02/2021 TECHNIQUE: Ultrasound of the pelvis is performed using both transabdominal and transvaginal transducers along with Doppler. Transvaginal imaging is performed due to inadequate visualization transabdominally. FINDINGS: Uterus: The uterus is anteverted and measures 8.3 x 3.1 x 4.4 cm. An IUD which was present previously is not seen on the current study. The double wall endometrial thickness is 0.9 mm. The uterus is smooth in contour and has normal myometrial echogenicity. No visible fibroid. Nabothian cysts are present in the cervix. Adnexa: Both ovaries are visualized. There is normal color flow to the adnexa. There is no ovarian torsion. There is no pelvic ascites or fluid collection. Right ovary measures 3.4 x 2.2 x 2.1 cm for a volume of 8.2 mL Left ovary measures 3.9 x 1.9 x 2.5 cm for a volume of 11.8 mL. US/US pelvic and transvaginal IMPRESSION: Negative exam.
== END 2022-07-02 15:51 | disposition home or self-care (01) ==
LOC: HO.US 15:50
PROVIDERS: Visit Provider Obstetrics & Gynecology
DX: L68.0 Hirsutism (principal); K62.89 Other specified diseases of anus and rectum
CPT/HCPCS: 76830; 76856

== ENCOUNTER → 2022-09-18 11:57 | Outpatient (BNVA) | payer OTHER, SELFPAY | PROVIDERS: Visit Provider Obstetrics & Gynecology ==

== ENCOUNTER 2023-07-13 06:30 | Emergency (ER) | payer OTHER, SELFPAY ==
--- NOTE | ~2023-07-13 | XR_ITS ---
EXAMINATION: XR FOOT, RIGHT CLINICAL INFORMATION: Pain. COMPARISON: None available. TECHNIQUE: AP, lateral, and oblique views of the right foot. FINDINGS: There is mild hallux valgus deformity first MTP joint. No visible acute fracture, dislocation or subluxation seen. The ankle mortise and subtalar joints are normal. The soft tissues are normal. XR/XR foot RT min 3V IMPRESSION: Mild hallux valgus deformity first MTP joint. No visible acute fracture or dislocation seen.
[2023-07-13 06:33] VITALS: BP 109/61; PULSE 92; RESP 14; TEMP 36.1; O2SAT 99; BMI 46.8
--- NOTE | 2023-07-13 07:24 | ED.GENADULT ---
HPI - General Adult General Chief complaint: Extremity Injury, Lower Stated complaint: R foot pain Time Seen by Provider: 07/13/23 07:14 Source: patient Mode of arrival: ambulatory Limitations: no limitations History of Present Illness HPI narrative: 22 years old female presented to the emergency department complaining of pain in the foot since Thursday the pain is localized in the plantar aspect of the right foot is worse with ambulation better off ambulation no trauma. Patient denies any systemic symptoms such as fever chills vomiting Onset (ago): day(s) (1) Location: lower extremity (Right foot) Radiation: non-radiation Severity: mild Severity scale (1-10): 3 Pain Consistency: constant Relieving factors: none Exacerbating factors: none Associated symptoms: denies other symptoms Related Data Previous Rx's Medication Instructions Recorded naproxen 500 mg tablet (Naprosyn) 500 mg PO BID PRN PAIN #20 tabs 07/13/23 Allergies Allergy/AdvReac Type Severity Reaction Status Date / Time No Known Allergies Allergy Verified 07/13/23 06:31 [No Known Allergies*] Review of Systems Constitutional: Constitutional: Reports no additional constitutional complaints ENT: Reports system reviewed and no additional complaints, except as documented Cardiovascular: Cardiovascular: Reports no additional cardiovascular complaints [facility] Past Medical History Attestation statement: The following information was validated with the patient. [facility] Narrative: Denies any medical problems Medical History Morbid obesity Morbid obesity with BMI of 50.0-59.9, adult Surgical History Hx of cholecystectomy Family History Family History Father Diabetes mellitus Maternal Grandmother Diabetes mellitus Brother No problems noted. Brother No problems noted. Sister No problems noted. Sister No problems noted. Social History Social History Alcohol intake: never Patient Tobacco Use Status: Never used Tobacco Substance Use Type: Marijuana Advance Directives: No Gender identity: Female Physical Exam ED Vital Signs: Vital Signs - 24 hr 07/13/23 06:33 Temperature 97.0 F Pulse Rate 92 Respiratory Rate 14 Blood Pressure 109/61 Pulse Oximetry 99 Oxygen Delivery Method Room Air BMI result Body Mass Index 46.8 Const Other: She looks well she has not in distress very comfortable in the stretcher General: cooperative Orientation/consciousness: patient oriented x3 HENMT Head: Yes normal to inspection General nose exam: Normal external nose present Face and sinus: Yes normal facial exam Neck Neck: Yes normal visual inspection Chest Chest palpation & inspection: normal inspection of the chest Resp Auscultation: clear to auscultation bilaterally Cardio Jugular venous distension: no JVD Rate: regular rate Rhythm: regular rhythm GI Inspection: Yes normal to inspection Palpation (GI): Soft to palpation, not firm and nontender Skin General skin exam: no rashes or lesions noted Neuro General: patient oriented x3 Cranial nerves: Yes CN's II-XII intact bilaterally Extrem Other: Examination the right foot show no deformity there is tenderness in the plantar aspect good perfusion Course Reevaluation(s) Reevaluation #1: X-ray negative the clinical picture is more consistent with plantar fascitis will discharge home on anti-inflammatory follow-up with your primary care physician Time: 07:28 Medications Administered Discontinued Medications Generic Name Dose Route Start Last Admin Trade Name Freq PRN Reason Stop Dose Admin Naproxen 500 mg 07/13/23 07:21 07/13/23 07:31 Naproxen 500 Mg Tablet PO 07/13/23 07:22 500 mg ONCE ONE Administration Medical Decision Making Medical Decision Making [facility] Narrative: Patient presented with right foot pain will obtain x-ray Differential Diagnosis Differential Diagnoses: The differential diagnosis associated with the presentation includes Foot fracture/plantar fascitis/ischemic foot Admission/Observation Consideration of admission/observation: Escalation of care including admission/observation considered Independent Interpretation I performed an independent interpretation of an: Plain X-Ray Interpretation: I reviewed personally interpreted the x-ray of the foot Radiology Impression Discussion of test interpretation with radiology: I have reviewed the radiologist's reading. Radiologist Impression: TECHNIQUE: AP, lateral, and oblique views of the right foot. FINDINGS: There is mild hallux valgus deformity first MTP joint. No visible acute fracture, dislocation or subluxation seen. The ankle mortise and subtalar joints are normal. The soft tissues are normal. XR/XR foot RT min 3V IMPRESSION: Mild hallux valgus deformity first MTP joint. No visible acute fracture or dislocation seen. Dictated By: Melo Blanca MD Signed By: <Electronically signed by Melo Blanca MD in OV> Discharge Plan Discharge Clinical Impression: Plantar fasciitis, right Patient Disposition: Home, Self-Care Instructions: Plantar Fasciitis (ED) Prescriptions: New naproxen [Naprosyn] 500 mg tablet 500 mg PO BID PRN (Reason: PAIN) Qty: 20 0RF Referrals: Zaheer Mcguire MD [Physician] - 3 days Interventions: ED Discharge Assessment Last Done: 07/13/23 07:36 Discharge Date/Time: 07/13/23 07:38
[2023-07-13] MEDS: NaPROXEN 500 MG TABLET PO (07:31)
== END 2023-07-13 07:38 | disposition home or self-care (01) ==
PROVIDERS: Emergency Provider Emergency Medicine
DX: M72.2 Plantar fascial fibromatosis (principal); M79.671 Pain in right foot
CPT/HCPCS: 73630; 99283

== ENCOUNTER 2023-09-03 10:59 | Outpatient (AMB) | payer OTHER, SELFPAY ==
--- NOTE | 2023-09-03 11:04 | A.OFFVIS_ITS ---
Intake Vital Signs 09/03/23 11:06 Height 5 ft 2 in Weight 255 lb BMI 46.6 Intake Visit Reasons: New Pt - right foot pain Intake Note: Todd is a 23 year old female who presents today for a evaluation of her right foot pain. No injury. Patient reports ongoing pain for a month or 2. She states that the bottom of her foot is in a lot of pain when ambulating. She finds relief when she is resting. Pain is worse when she is streaching her foot. Allergies No Known Allergies [No Known Allergies*] Allergy (Verified 09/03/23 11:05) HPI New Pt - right foot pain HPI Details 23-year-old female who presents in the [facility] today for an evaluation of right foot pain. Patient presented to the ED on 07/13/2023 with a complaint of localized pain in the plantar aspect of the right foot. X-rays were obtained. Patient was prescribed Naproxen 500 mg PO BID PRN with 20 tablets. While in the office today the patient denies any known injury. She states her pain has been ongoing for 1-2 months. She reports increased pain with ambulation and stretching her foot. She finds relief with rest. [facility] Medical History Morbid obesity Morbid obesity with BMI of 50.0-59.9, adult Surgical History Hx of cholecystectomy Family History Father Diabetes mellitus Maternal Grandmother Diabetes mellitus Brother No problems noted. Brother No problems noted. Sister No problems noted. Sister No problems noted. Social History Alcohol intake: never Patient Tobacco Use Status: Never used Tobacco Substance Use Type: Marijuana Gender identity: Female Female Reproductive History Menstrual Age of Menarche: 9 Review of Systems Const All systems reviewed & are unremarkable except as noted in HPI and below Physical Exam Vital Signs: BMI result Body Mass Index 46.6 Const General: cooperative and no acute distress Orientation/consciousness: patient oriented x3 Resp Effort & Inspection: normal respiratory effort and able to speak in complete sentences Cardio Peripheral pulses: Peripheral pulses 2+ throughout Skin General skin exam: no rashes or lesions noted Neuro General: patient oriented x3 Extrem Other: Right foot: Normal to inspection. No ecchymosis, erythema, or edema. Tenderness to palpation along the plantar fascia. Able to dorsiflex and plantarflex to end range. Able to move all digits. Sensation intact. Capillary refill is brisk. Pedal pulse intact. Assessment & Plan Assessment & Plan (1) Plantar fasciitis, right: Code(s): M72.2 - Plantar fascial fibromatosis Plan Ms. Ware is a 23-year-old female who presents in the office today for an evaluation of right foot pain. Patient presented to the ED on 07/13/2023 with a complaint of localized pain in the plantar aspect of the right foot. X-rays were obtained. Patient was prescribed Naproxen 500 mg PO BID PRN with 20 tablets. While in the office today the patient denies any known injury. She states her pain has been ongoing for 1-2 months. She reports increased pain with ambulation and stretching her foot. She finds relief with rest. Patient was given a blue night splint, off the shelf, while in the office today. This should keep the foot in dorsiflexion. Patient reports having Naproxen at home. She should continue to take this medication as prescribed. A referral to PT was placed today. I also educated the patient on exercises that she can perform at home with the use of a tennis ball rolling over the plantar fascia. Also, by freezing a water bottle and rolling her foot over the water bottle over the planter fashion. Follow up will be PRN, or sooner if needed. X-rays of the right foot, obtained on 07/13/2023, revealed: There is mild hallux valgus deformity first MTP joint. No visible acute fracture, dislocation or subluxation seen. The ankle mortise and subtalar joints are normal. Soft tissues are normal. Orders: Orders PT Evaluation and Treatment Today M72.2 - Plantar fascial fibromatosis Patient Instructions: Scribed by Ivy Rivas nuclear medicine medical director, for Regina Carson PA-C on 09/03/2023 at 11:30 am, EST. Coding Level of Care Code New Pt Level 4 (47313) Diagnoses Plantar fasciitis, right M72.2
[2023-09-03 11:06] VITALS: BMI 46.6
== END 2023-09-03 11:31 | disposition home or self-care (01) ==
PROVIDERS: Visit Provider Physician Assistant
DX: M72.2 Plantar fascial fibromatosis (principal)
CPT/HCPCS: 99203

== ENCOUNTER → 2023-09-03 10:59 | Outpatient (BNVA) | payer OTHER, SELFPAY | PROVIDERS: Visit Provider Physician Assistant | DX: M72.2 Plantar fascial fibromatosis (principal) | CPT/HCPCS: 99202 ==

== ENCOUNTER 2023-10-07 10:43 | Outpatient (RCR) | payer OTHER, SELFPAY ==
--- NOTE | 2023-10-07 17:09 | MHC.PT.EP ---
[facility] [place] Office [place] Office [place] Office [address] [phone] F: [phone] F: [phone] F: [phone] F: [phone] Physical Therapy Plan of Care Date of Evaluation: 10/07/23 Date of Surgery: Diagnosis: Plantar fasciitis. Assessment: Pt is a 23 y/o female referred to PT for eval and treat of plantar fasciitis who reports 3 months of heel pain R foot with insidious onset which has been limiting her tolerance for walking for duration as well as first step pain Sx, and standing for duration secondary to decreased R foot ROM and strength, pes planus B, TTP of R heel and plantar, and pain with activity. Pt is deemed an appropriate candidate to receive skilled PT services to address their physical impairments in order to improve their functional ability. Frequency and Duration: The patient will be seen 2 x/ wk x 4 wks. Short Term Goals: Initiate home program. improve baseline pain from 3/10 to < 2/10. Fuse Cutter Goals: I with home program. Pt will be able to walk long distances with managed Sx. LEFI improved by at least 9 points. no longer TTP of R heel. Treatment Plan: Modalities to reduce pain, spasms and effusion. Manual therapy to restore motion and function. Therapeutic exercise to improve strength and flexibility. Neuromuscular re-education for posture and balance. Therapeutic activities to return to functional activities of daily living. Electronically signed by: Dong Mckeon PT. Please sign and return to therapist. Thank you for your referral.
--- NOTE | 2023-10-13 10:47 | MHC.PT.DC ---
[facility] [place] Office [place] Office [place] Office [address] [phone] F: [phone] F: [phone] F: [phone] F: [phone] Physical Therapy Discharge Report Diagnosis: Plantar fasciitis. Date of Surgery: Date of Evaluation: 10/07/23 Date of Discharge: 10/13/23 Treatments to Date: 1 Cancellations to Date: No Shows to Date: Discharge Status: Patient Elected to Stop Discharge Summary: Pt called to state that this is not a good time for therapy and self DC'd. Electronically signed by: Dong Mckeon PT. Please sign and return to therapist. Thank you for your referral.
== END 2023-10-13 10:13 | disposition home or self-care (01) ==
LOC: HO.PT 10:43
PROVIDERS: Visit Provider Physician Assistant
DX: M72.2 Plantar fascial fibromatosis (principal)
CPT/HCPCS: 97110; 97161

== ENCOUNTER 2025-02-28 11:56 | Outpatient (AMB) | payer OTHER, SELFPAY ==
--- NOTE | 2025-02-28 12:20 | MHC.OFFVIS ---
Vital Signs 02/28/25 12:22 Height 5 ft 2 in Weight 260 lb BMI 47.5 Intake Visit Reasons: Rt breast lump Dental Insurance Biller Required: No Information Interpreted: non-clinical & clinical Software Installation Engineer: Software Installation Engineer Present (Jenny HERNANDEZ) Accompanied by: Self / Same As Patient Allergies No Known Allergies (No Known Allergies*) Allergy (Verified 02/28/25 12:23) HPI Comments Details: Presenting complaining of right breast lump a few months' duration no associated nipple discharge or any other concerns [facility] Medical History Morbid obesity Morbid obesity with BMI of 50.0-59.9, adult Surgical History Hx of cholecystectomy Family History Father Diabetes mellitus Maternal Grandmother Diabetes mellitus Brother No problems noted. Brother No problems noted. Sister No problems noted. Sister No problems noted. Social History Alcohol intake: never Patient Tobacco Use Status: Never used Tobacco Substance Use Type: Marijuana Gender identity: Female Female Reproductive History Menstrual Age of Menarche: 9 Physical Exam Vital Signs: BMI result Body Mass Index 47.5 Chest Chest palpation & inspection: normal inspection of the chest Breast/axilla inspection: inspection of breasts abnormal (Right breast lump 04:00 6 cm from the nipple, left within normal) Assessment & Plan Assessment & Plan (1) Breast lump on right side at 4 o'clock position: Comment: 6 cm from the nipple Code(s): N63.14 - Unspecified lump in the right breast, lower inner quadrant Category: Medical Plan: Discussed with the patient the finding on Breast exam (breast lump) .The differential diagnosis includes but not limited to lump/cyst/pre cancer/cancer or dense breast tissue. The work up includes breast US and referred the patient for surgical breast consult. Orders: Orders US breast RT limited Today N63.14 - Unspecified lump in the right breast, lower inner quadrant Referrals General Surgery Referral N63.14 - Unspecified lump in the right breast, lower inner quadrant Coding Level of Care Code Est Pt Level 3 (75267) Diagnoses Breast lump on right side at 4 o'clock position N63.14
[2025-02-28 12:22] VITALS: BMI 47.5
--- OUTSIDE RECORDS SUMMARY | 2025-02-28 15:00 | XMS_ITS | Clinical Summary ---
Author Organization [facility] [address] [facility] Address [address] [place] [phone] Phone Care Team Providers Care Fastener Technologist Name Role Phone Geeta Sanders Primary Care Provider [phone] Allergies No known active allergies Medications semaglutide (Ozempic) 0.25 mg or 0.5 mg (2 mg/3 mL) injection pen INJECT 0.5 MG INTO THE SKIN ONE TIME PER WEEK 3 mL 1 04/26/2024 Active Ozempic 0.25 mg or 0.5 mg (2 mg/3 mL) injection pen Inject 0.25 mg under the skin every 7 (seven) days. Active sertraline (ZOLOFT) 50 mg tablet Take 1 tablet (50 mg total) by mouth 1 (one) time each day. 12/07/2023 Active cholecalciferol (VITAMIN D-3) 50 mcg (2,000 unit) capsule Take 1 capsule (2,000 Units total) by mouth 1 (one) time each day. 10/22/2023 Active ferrous sulfate 325 mg (65 mg elemental iron) tablet Take 1 tablet (325 mg total) by mouth 1 (one) time each day. 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 Iron deficiency anemia 01/18/2017 Overview (04/27/2024): 01/01/17: hg 10.9 at [facility] Vitamin D deficiency 08/06/2011 Overview (04/27/2024): 19.8 3/12 5/14: 16, rx for vitamin d supplement sent to pharmacy Acanthosis nigricans 07/18/2011 Acne 01/23/2010 Morbid obesity with BMI of 4 5.0-49.9, adult ([facility] V24, [facility] V28) Encounters Date Type Department Care Team Description 02/07/2025 Lab Requisition [facility] - Main Lab [address] [place] [address] Misael Bailey MD Encounter for gynecological examination (general) (routine) without abnormal findings from Last 3 Months Immunizations Immunization Administration Dates Next Due DTaP (Infanrix) 6wks to less than 7yo ,07/30/1999,1998,05/15,1998 [id number] (Pentacel) 2mo to less than 5yo 04/09/1999,1998,1998,03/12 HPV, Quadrivalent 04/21/2011,03/26/2010,01/25/20 10 Hepatitis B Pediatric (Enger ix B; Recombivax HB) to less than 20 yo 1998,1998,1998 IPV Inactivated polio (Ipol) 6wks and older 09/14/2002,07/30/1999 Influenza trivalent, 0.5mL, preservative free (Fluarix; FluLaval; Fluzone) ages 6mo and older (Afluria) 3 years and older 02/26/2023,03/21/2017,03/07/2016,03/22,03/03/2014,06/25/2012,04/21/2011 ,01/24/2010,02/28/2008 MMR, measles mumps and rubel la Live (Priorix; M-M-R II) 12mo and older 09/14/2002,02/05/1999 Meningococcal MCV4P 10/23/2015,01/24/2010 OPV 03/12/2008,1998 Tdap Tetanus diptheria acell ular pertussis (Boostrix; Adacel) 7yo and older 01/09/2023,01/01/2017,01/24/2010 Varicella live (Varivax) 12m o and older 01/01/2009,02/05/1999 Surgical History Surgery Date Site/Laterality Comments CHOLECYSTECTOMY 05/06/2017 PROCEDURE: [place] LAPAROSCOPY SURG CHOLECYSTECTOMY; COMMENT: [facility] Medical History Medical History Date Comments Vitamin D deficiency 08/06/2011 DX:Vitamin D deficiency; COMMENT: 19.8 08/03 10/05: 16, rx for vitamin d supplement sent to pharmacy Morbid obesity ([facility] V24, [facility] V28) 04/22/2018 DX:Morbid obesity (HCC) 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 Iron deficiency anemia 01/18/2017 DX:Iron d eficiency anemia; COMMENT: 01/01/17: hg 10.9 at [place] [facility] Acne 01/23/2010 DX:Acne Acanthosis nigricans 07/18/2011 DX:Acanthos is nigricans Family History Medical History Relation Name Comments Diabetes Father Hyperlipidemia Father Hypertension Mother Relation Name Status Comments Father Mother Social History Tobacco Use Types Packs/Day Years Used Date Smoking Tobacco: Never Smokeless Tobacco: Never Alcohol Use Standard Drinks/Week Comments Yes 0 (1 standard drink = 0.6 oz pur e alcohol) Comments Unknown Sex and Gender Information Value Date Recorded Sex Assigned at Not on file Legal Sex Female 4:47 AM EST Gender Identity Not on file Sexual Orientation Not on file Obstetrics History Last Filed Vital Signs Vital Sign Reading Time Taken Comments Blood Pressure 100/72 12/08/2023 10:38 AM EDT Pulse 76 12/08/2023 10:38 AM EDT Temperature - - Respiratory Rate - - Oxygen Saturation 98% 11/10/2023 9:4 7 AM EDT at rest, room air Inhaled Oxygen Concentration - - Weight 111 kg (244 lb) 12/08/2023 10:38 AM EDT Height 157.5 cm (5' 2 ) 12/08/2023 10:3 8 AM EDT Body Mass Index 44.63 12/08/2023 10:38 AM EDT Plan of Treatment Health Maintenance Due Date Last Done Comments HIV Screening 05/03/2022 Hepatitis C Screening 05/03/2022 Social Influencers of Health Screening 05/03/2022 Depression Screening 05/25/2024 12/05/2023 COVID-19 Vaccine ( season) 2025 08/18/2020 Influenza Vaccine (#1) 2025 , 03/21/2017, 03/07/2016, Additional history exists Cervical Cancer Screening: Pap Smear 02/07/2028 02/06/2025 Cholesterol Screening (Lipid Panel) 10/20/2028 10/21/2023, 10/21/2023 DTaP,Tdap,and Td Vaccines (9 - Td or Tdap) 01/09/2033 01/09/2023, 01/01/2017, 01/24/2010, Additional history exists RSV Immunization Adult Patients (1 - 1-dose 75+ series) 2073 Hepatitis B Vaccines Completed 1998, 1998, 1998 HIB Vaccines Completed 04/09/1999, 06/26, 1998, Additional history exists MMR Vaccines Completed 09/14/2002, 02/05/1999 IPV Vaccines Completed 03/12/2008, 08/24, 07/30/1999, Additional history exists Varicella Vaccines Completed 01/01/2009, 02/05/1999 HPV Vaccines Completed 04/21/2011, 06/2009, 01/24/2010 Meningococcal ACWY Vaccine Completed 10/23/2015, Hepatitis A Vaccines Aged Out No long er eligible based on patient's age to complete this topic Meningococcal B Vaccine Aged Out No l onger eligible based on patient's age to complete this topic Pneumococcal Vaccine: Pediatrics (0 to 5 Years) and At-Risk Patients (6 to 49 Years) Aged Out No longer eligible based on patient's age to complete this topic RSV Immunization Patients Under 20 months Aged Out No longer eligible based on patient's age to complete this topic Procedures Procedure Name Priority Date/Time Associated Diagnosis Comments PAP SMEAR Routine 02/06/2025 12:00 AM EDT Encounter for gynecological examination (general) (routine) without abnormal findings HM DEPRESSION SCREENING Routine 12/05/2023 LIPID PANEL Routine 10/21/2023 from Last 3 Months or Most Recently Relevant to Health Maintenance Results * Pap smear (02/06/2025 12:00 AM EDT) Interpretation Negative for intraepithelial lesion or malignancy 02/22/2025 9:29 AM EDT [facility] at 0929 EDT General Categorization Negative 02/22/2025 9:29 AM EDT [facility] LMP 02/22/2025 9:29 AM EDT [facility] Comment:nexplanon Specimen Adequacy Satisfactory for evaluation, endocervical/connelly sformation zone component present 02/22/2025 9:29 AM EDT [facility] Pap Methodology Liquid Based Pap Test 02/22/2025 9:29 AM EDT [facility] Disclaimer Note: This pap test could not be imaged utilizing the [employer] System and required a manual review. The Pap test is a screening test which carries an inherent false negative rate. These test results should be correlated with the patient's clinical findings and history. This Pap test was processed using an automated screening system. Technical cytopathology services provided by [facility], at [address] [place] [address] (CLIA # [id number]/Otilia Hendrix MD, [place].) 02/22/2025 9:29 AM [facility] Console Pap Interpretation Reported 02/22/2025 9:29 AM T [facility] Brushing/Spatula Cervix uteri structure / Unknown 02/06/2025 02/07/2025 6:50 AM EDT Misael Bailey MD LAB CYTOLOGY ORDERABLES Final Result [facility] [address] [place] [address], * Depression Screening (12/05/2023) Depression Screening Abstracted us Historical Provider HEALTH MAINTENANCE Final Result * (ABNORMAL) Lipid panel (10/21/2023) LDL/HDL Ratio 4 0 - 4 Triglycerides 110 0 - 150 mg/dL Cholesterol 161 0 - 200 mg/dL HDL 37(A) >=40 mg/dL LDL Cholesterol 102(A) 0 - 100 mg/dL Blood Venous blood specimen / Unknown us Historical Provider LAB BLOOD ORDERABLES Kendy l Result from Last 3 Months or Most Recently Relevant to Health Maintenance Care Teams Fastener Technologist Relationship Specialty Start Date End Date Geeta Sanders [address] [place] [phone] PCP - General Family Medicine 02/07/25
--- OUTSIDE RECORDS SUMMARY | 2025-02-28 15:00 | XMS_ITS | Patient Health Record ---
Author Organization [facility] Address [address] [place] [address] Care Team Providers Care Finance Attorney Name Role Phone TYLER BELTRAN Unavailable [phone] Reason For Referral No Information Medications Medication SIG (Take, Route, Frequency, Duration) Notes Start Date End Date Status Depo-Provera Active Social History Tobacco Use: Social History Observation Description Date Details (start date - stop date) Never Smoker NA - NA Tobacco Use/Smoking Question Answer Notes Are you a nonsmoker Alcohol Screen (Audit-C) Question Answer Notes Did you have a drink containing alcohol in the p ast year? No Points 0 Interpretation Negative Sexual History Question Answer Notes Had sex in the past 12 months (vaginal, oral, or anal)? Yes with Men only Tobacco use other than smoking: Question Answer Notes Are you an other tobacco user? No Problems Problem Type SNOMED Code ICD Code Onset Dates Problem Status W/U Status Risk Notes Problem Body mass index 40+ - severely obese (526540079) Body mass index (BMI) 45.0-49.9, adult (Z68.42) Active confirmed Plan Of Treatment No Information Insurance Providers Payer Name Payer Address Payer Phone Subscriber Number Group Number Insured Name Patient Relationship to Insured Coverage Start Date Coverage End Date [facility] [employer] [address] [address] [place] [address] [id number] CROW FRITZ Self - patient is the insured Medical (General) History Surgical History Surgery Date(Month/Year) Cholecystectomy 05/06/17 Hospitalization History Reason Date(Month/Year) See surgical history.
--- OUTSIDE RECORDS SUMMARY | 2025-02-28 15:00 | XMS_ITS | Encounter Summary ---
Author Organization [facility] Address [address] [place] [address] Phone Care Team Providers Care Cardiac Catheterization Technologist Name Role Phone Rosalinda Mckeon MD Primary Care Provider Unavailabl e Encounter Details Date Type Department Care Team (Late st Contact Info) Description 2017 Conversion Encounter [facility] - [address] [address] Social History Tobacco Use Types Packs/Day Years Used Date Smoking Tobacco: Never Assessed Comments Unknown Sex and Gender Information Value Date Recorded Sex Assigned at Not on file Legal Sex Female 4:30 PM EDT Gender Identity Not on file Sexual Orientation Not on file documented as of this encounter Plan of Treatment Not on file documented as of this encounter Visit Diagnoses Not on filedocumented in this encounter Care Teams Cardiac Catheterization Technologist Relationship Specialty Start Date End Date Rosalinda Mckeon MD PCP - General 01/02/17 documented as of this encounter
--- OUTSIDE RECORDS SUMMARY | 2025-02-28 15:00 | XMS_ITS | Clinical Summary ---
Author Organization [facility] Address [address] [place] [id number] Phone Care Team Providers Care Share Dairy Farmer Name Role Phone Pcp, Unknown Primary Care Provider Unavailabl e Allergies No known active allergies Medications PNV no.153/FA/om3/dh a/epa/fish ( GUMMIES ORAL) Take by mouth. A ctive docusate sodium (COLACE) 100 MG capsule Take 1 capsule (100 mg total) by mouth 2 (two) times a day. 180 capsule 3 Active Additional Information Patient not taking.Reported on 06/04/2023 acetaminophen (TYLENOL) 325 mg tablet Take 2 tablets (650 mg total) by mouth every 6 (six) hours as needed. 0 3 Active Additional Information Patient not taking.Reported on 04/06/2023 ibuprofen (ADVIL,MOTRIN) 600 MG tablet Take 1 tablet (600 mg total) by mouth every 6 (six) hours as needed for pain (specific location in comments). 3 Active Additional Information Patient not taking.Reported on 04/10/2023 cholecalciferol (VITAMIN D3) 2,000 unit capsule Take 1 capsule by mouth daily. 4 Active ferrous sulfate 325 mg (65 mg lytton iron) tablet Take 1 tablet by mouth daily. 4 Active OZEMPIC 0.25 mg or 0.5 mg (2 mg/3 mL) subcutaneous injection pen Inject 0.5 mg under the skin. 4 Active sertraline (ZOLOFT) 25 MG tablet Take 25 mg by mouth. 4 Active Hospital, Clinic, or Other Facility Administered Medication Ordered Dose Route Frequency Start Date End Date Status etonogestreL (NEXPLANON) subdermal implant 68 mg 68 mg IDrm Every 3 years 04/10/2023 Active Active Problems Problem Noted Date Diagnosed Date Mastitis, left, acute 04/06/2023 Assessment & Plan (04/06/2023 5:19 PM EST): Patient with clogged duct, breast erythema, and subjective fever/chills No area of fluctuance appreciated on exam, low suspicion for breast abscess at this time Patient to start course of dicloxacillin today Recommended warm compresses/showers, frequent /pumping every 2-3 hours, hand expression/massage, tylenol/ibuprofen as needed Warning signs/symptoms, return precautions reviewed Follow up in 1 week or sooner as indicated Normal intrauterine , antepartum 2022 Post-term , 40-42 weeks of gestation Assessment & Plan (03/26/2023 9:53 PM EDT): Due to unit scheduling, was able to offer pt IOL 03/27 or wait until 04/01. She prefers 03/27, scheduled and unit notified. Request for sterilization 09/25/2022 Overview (03/26/2023): Uncertain if she wants immediately PP or interval, aware she will be assessed PP for possibility for immediate. May want 1 dose of Depo before leaving hospital if not immediate Consents signed 12/23/22 03/26/23 Crow is having second thoughts and she may prefer to do the Nexplanon before she leaves instead. Reviewed she can withdraw her consent at any time Assessment & Plan (03/26/2023 9:50 PM EDT): Crow is having second thoughts and she may prefer to do the Nexplanon before she leaves instead. Reviewed she can withdraw her consent at any time Assessment & Plan (02/18/2023 2:21 PM EDT): Uncertain if she wants immediately PP or interval, aware she will be assessed PP for possibility for immediate. May want 1 dose of Depo before leaving hospital if not immediate Assessment & Plan (12/23/2022 11:32 AM EDT): Consents reviewed and signed today. Now feels she is most interested in interval procedure. We reviewed that she should still sign consent in case she changes her mind and/or in the event of a . Assessment & Plan (11/24/2022 11:32 AM EDT): Plan to sign consent at n.v. Maternal varicella, non-immune 09/17/2022 Rubella non-immune status, antepartum 09/17/2022 Supervision of high risk in third trim rito 07/31/2022 Overview (03/26/2023): CNM OB-CMI score: 2 [07/31/2022] Group PN care? No Rh pos GC/Chlam neg PAP neg-- with insuff cellularity, repeat pp Tdap 01/09/23 Flu 02/26/23 COVID-19 needs booster, counseled Hgb 11.9 GTT 100 28 wk Repeat RPR neg GBS negative PPBC was planning tubal ligation, consents signed 12/23/22 03/26/23 Now may be planning Nexplanon screening plans cfDNA and carrier screening-- will do at [place] Baby boy [place] Assessment & Plan (03/26/2023 9:53 PM EDT): Crow is a 23 y.o. at 40w6d doing well. Denies VB/LOF/Ctxs. + FM. Was hoping for spontaneous labor but now would like to schedule IOL. VE 1 internal os/50-60/-3 US not scheduled as planned - able to do after visit - BPP 12/30, SARA 13 cm. Assessment & Plan (03/19/2023 10:59 AM EDT): Crow feels ok, just ready for baby! Called yesterday with an instance of watery pink discharge x 1 and concern for ROM, she has not had any further leaking since that time. Reviewed postdates plan of care, discussed risks of postdates vs benefits of spontaneous labor onset. She would like to wait for labor to start on its own. SVE today, 2cm external os, not able to reach internal os, attempted membrane sweep. She will return to office in one week for a BPP with a visit to follow. Assessment & Plan (03/12/2023 10:50 AM EDT): 3rd tri comforts measures reviewed. Disc steps to take toward optimal health in . Reviewed s/s labor, danger signs, when/how to call. Assessment & Plan (03/09/2023 4:59 PM EDT): Still feels fairly well, but notes sleep has become more difficult. Discussed sleep hygiene and strategies for more restful sleep. Discussed packet and hand expression. S>D at last visit, U/S 02/26 showed growth at 51st %ile - gave reassurance. Assessment & Plan (02/26/2023 1:25 PM EDT): Feeling well today, flu given, Covid vaccine encouraged. VE done at pt's request, 1cm/30%/-5/soft. Ultrasound results discussed. 3rd tri comforts measures reviewed. Disc steps to take toward optimal health in . Reviewed s/s labor, danger signs, when/how to call. Assessment & Plan (02/18/2023 2:24 PM EDT): Feeling well overall, no complaints. Starting leave on Thursday, can be off for full 20w. Enc 30 min walking daily now that she will have more time for remainder of PG. Still deciding about circ--disc. Hopes to avoid epidural like in P2--wants to use N2O and tub. GBS collected today. 3rd tri comforts measures reviewed. Disc steps to take toward optimal health in . Reviewed s/s labor, danger signs, when/how to call. Assessment & Plan (02/04/2023 4:16 PM EDT): Zelalem is doing well. Baby has been even more active this past couple of days. Has had some tulio lara, maybe 4-5 a day. labor warnings reviewed. Is keeping up with hydration. No other questions or concerns. Reviewed GBS at next visit. Assessment & Plan (01/31/2023 8:42 PM EDT): Crow is a 23 y.o. at 31w5d states she feels well today. Denies any concerns at this time. Denies any LOF/Vaginal bleeding/Ucs. Reports abundance of FM -Discussed FM at this [facility] and [facility] -Review signs and symptoms of Labor and when/how to contact midwives -GBS at 36 wks -Advised on weekly visits starting at 36 -Reviewed end of discomforts and comfort measures. Assessment & Plan (01/09/2023 5:47 PM EDT): Crow is doing well. Baby is moving well. No concerns. Concerned about weight gain. Had a jump in weight this past time. Has only gained 20 lbs overall. Reviewed minimizing carbs and sugars and increasing exercise. She will work on it. No other concerns. Tdap offered and accepted today. EPDS 0 Assessment & Plan (12/23/2022 11:31 AM EDT): Here with her daughter. Feels well other than a random pain in her RLQ side that came and went over the past few weeks. Not related to movement or eating, not related to movements. No belly tightening. We discussed that this may be musculoskeletal or gas pain - recommended she change position frequently during the day. Continue to monitor. labor signs and other third trimester warning signs reviewed. Reviewed normal third trimester labs, normal Level II at [facility] (for incomplete views). Assessment & Plan (11/24/2022 11:32 AM EDT): Crow feels fairly well, her biggest concern is constipation. She has been taking [employer] brand laxative (docusate 50mg, senna 8 mg) as needed but doesn't feel it's totally effective. Suggested she try to avoid stimulant laxatives, Rx sent for docusate 100 mg BID, check in at n.v. Also having some low back pain, possibly related - discussed some stretches she can try as well as a belly band. Discussed GTT/CBC/RPR at n.v. She is feeling very regular movement. Level II schedule 12/02 at [facility] for limited views x 2 - she is aware. Assessment & Plan (10/27/2022 12:21 PM EDT): Crow feels well. Feeling some movement, inconsistent. Anterior placenta, gave reassurance. OB survey today was limited, repeat needed in 2-4 weeks. Otherwise normal findings. Discussed childbirth ed, class, groups. She struggled with x 2 due to inverted nipples, but would like to try again. Assessment & Plan (09/25/2022 11:56 AM EDT): Here with her mom. Feels well, notes that she still periodically experiences some nausea if she doesn't eat regularly but overall is doing well. 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 Discussed sleep hygiene, could try magnesium supplement or benadryl as needed. FHTs not heard today, pt added to hat blocking machine operator's schedule - viable fetus seen with S=D, anterior placenta. Pt offered reassurance. Discussed and scheduled anatomy scan. Advised today she would like her tubed tied. Will need MD consult in third trimester and consents signed. Assessment & Plan (08/28/2022 10:33 AM EDT): Pt reports nausea is improving, continuing to feel tired but overall well. C/o RLP that is bilateral and occurs with sudden movements. cfdna paperwork given to pt--plans to have all labs drawn today. Discussed u/s schedule per pt request. DUC 4wks Assessment & Plan (08/14/2022 1:00 PM EDT): Pt here for FOB with her mom Christie. Feeling ok, still has some mild nausea if she goes too long between meals. We discussed first trimester comforts. Reviewed US today s=d. Subchorionic hematoma noted. Discussed PE with pap completed DUC 2 wks per pt for nausea follow up and for labs reqs for cfdna/carrier screening. Obesity affecting in first trimester 0 07/31/2022 Overview (02/26/2023): Obesity in (BMI >30) BMI at Intake 45 Date Obesity plan of care discussed 07/31/22 pt aware she will need to transfer if BMI >50 BMI 49 at 36w, ok for delivery at [facility] BMI > 50 (at 36 weeks or before) transfer to tertiary care * Recommend daily baby aspirin if another risk factor is present (nulliparity, family h/o pre-eclampsia in mother or sister, age >= 35, IVF , previous with [facility], previous stillbirth, interval >= 10 years between pregnancies): Not indicated * If BMI 40 or greater discuss policy w patient-pt aware * first trimester screen for diabetes - HgbA1c: 4.8 * Nutrition counseling * 11-20lb weight gain * Growth sono q 4 wks if fundal height not reliable, after 28 weeks - growth at 37w: 51%ile * Induction only if indicated * PP lovenox according to guidelines Assessment & Plan (02/26/2023 1:16 PM EDT): Growth scan today: 51%ile, Vtx, SARA 20. BPP 12/30 Assessment & Plan (02/18/2023 2:22 PM EDT): BMI 49 at 36w, ok for delivery at [facility]. Growth scan ordered today. Assessment & Plan (02/04/2023 4:15 PM EDT): Weight gain has been appropriate. Difficult to feel position. Consider ultrasound for position check after next visit. Assessment & Plan (08/28/2022 10:34 AM EDT): We discussed exercise and diet choices now that she is less nauseas. Pt aware of BMI policy. Assessment & Plan (08/14/2022 1:01 PM EDT): TWG 2.2kg. diet recall includes fast food. We discussed nutrient dense foods and small frequent meals. Discussed benefits of fresh air and walking during . Immunizations Immunization Administration Dates Next Due KDzA-Gnc-SMB 04/09/1999, 9,1998,03/12 Dtap, 5 Pertussis Antigens 09/14/2002,,1998,05/15,1998 [id number] FORMULATION 04/26/2009 HPV,quadrivalent 04/21/2011,03/26/2010, 0 Hepatitis B 1998,1998,1998 Hepatitis B Adult 1998,1998,01/08/19 98 Hib,PRP-T 04/09/1999, 9,1998,03/12 INFLUENZA, SPLIT VIRUS, TRIVALENT PF 03/22/2015 INFLUENZA, SPLIT VIRUS, TRIV ALENT W/ PRESERVATIVE IM 03/07/2016,03/03/2014,06/25/2012,04/21,01/24/2010,02/28/2008 IPV 09/14/2002,07/30/1999 Influenza Quadrivalent MDCK Preservative Free IM 08/08/2019 Influenza Quadrivalent Prese rvative Free IM 02/26/2023,03/21/2017 MMR 03/29/2023, 3,09/14/2002,02/05,02/05/1999 Meningococcal MCV4P 10/23/2015,01/24/2010 PPD Test 11/05/2018,04/21/2017 Polio - OPV 03/12/2008,1998,1998 Tdap 01/09/2023, 7,09/26/2014,09/26,01/24/2010 Varicella 01/01/2009, 9,02/05/1999,02/05 Social History Tobacco Use Types Packs/Day Years Used Date Smoking Tobacco: Never Smokeless Tobacco: Never Tobacco Cessation:Counseling Given: Not Answered Alcohol Use Standard Drinks/Week Comments Not Currently 0 (1 standard drink = 0.6 oz pur e alcohol) Education Answer Date Recorded Are you interested in more education? Not on francine e 09/19/2022 Are you concerned about learning? Not on file 09/19/2022 No 09/19/2022 No 09/19/2022 Digital Access Answer Date Recorded No 10/21/2022 No 10/21/2022 Reliable internet access at home? Not on file 10/21/2022 Device with a working camera? Not on file Intimate Partner Violence Answer Date R ecorded Are you denied basic needs s uch as food, clothing, or medical care? No 03/29/2023 In the past 12 months have y ou been in a relationship with a person who hurts, threatens, or tries to control you? No 03/29/2023 Are you denied basic needs s uch as food, clothing, or medical care? No 03/29/2023 In the past 12 months have y ou been in a relationship with a person who hurts, threatens, or tries to control you? No 03/29/2023 Comments No Sex and Gender Information Value Date Recorded Sex Assigned at Not on file Legal Sex Female 2:16 PM EST Gender Identity Not on file Sexual Orientation Not on file Last Filed Vital Signs Vital Sign Reading Time Taken Comments Blood Pressure 116/76 01/27/2024 11:11 AM EDT Pulse 80 03/29/2023 8:00 AM EST Temperature 36.8 C (98.2 F) 03/29/2023 8:00 AM EST Respiratory Rate 18 03/29/2023 8:00 AM EST Oxygen Saturation 98% 03/29/2023 12:20 AM EDT Inhaled Oxygen Concentration - - Weight 112 kg (247 lb) 01/27/2024 11:11 AM EDT Height 157.5 cm (5' 2 ) 01/27/2024 11:11 AM EDT Body Mass Index 45.18 01/27/2024 11:11 AM EDT Plan of Treatment Health Maintenance Due Date Last Done Comments DEPRESSION SCREENING 2010 INFLUENZA VACCINE (#1) 2024 , 08/08/2019, 03/21/2017, Additional history exists COVID-19 VACCINE ( season) 2025 08/18/2020 PAP SMEAR 08/14/2025 08/14/2022 Contraceptive Implant 04/10/2026 04/10/2023 Adult Td,Tdap Booster 01/09/2033 01/09/2023 , 01/01/2017, 09/26/2014, Additional history exists HIB VACCINES Completed 04/09/1999, 03/25, 1998, Additional history exists MENINGOCOCCAL VACCINES (ACWY) Completed 10/23/2015, 01/24/2010 HEPATITIS C SCREENING Completed 08/28/2022 HIV ONE-TIME SCREENING (18-65 YEARS) Completed 08/28/2022 SMOKING STATUS SCREENING (Once After 26 Yrs) Completed 01/27/2024 HEPATITIS A VACCINES Aged Out No long er eligible based on patient's age to complete this topic MENINGOCOCCAL VACCINES (B) Aged Out N o longer eligible based on patient's age to complete this topic PNEUMOCOCCAL VACCINES (0-49 years) Aged Out No longer eligible based on patient's age to complete this topic Medical Devices Not on file Procedures Procedure Name Priority Date/Time Associated Diagnosis Comments HEPATITIS C ANTIBODY, QUALITATIVE Routine 08/28/2022 10:44 AM EDT Need for hepatitis C screening test PAP TEST Routine 08/14/2022 12:00 AM EDT from Last 3 Months or Most Recently Relevant to Health Maintenance Results * Hepatitis C antibody, qualitative (08/28/2022 10:44 AM EDT) HCV NON-REACTIV E NON-REACTI VE [facility] Blood 08/28/2022 10:4 4 AM EDT 08/28/2022 11:00 AM EDT Tari Haynes [facility] BLOOD ORDERABLES Final Resul t [address] [address] * Pap Test (08/14/2022 12:00 AM EDT) 08/14/2022 08/15/2022 10: 08 AM EDT Narrative SEE NARRATIVE - 08/19/2022 3:03 PM EDT [address] [address] Chief Of Hospital Medicine: Dinorah Ocampo MD DIRECTOR OF INSTRUCTION Cytology Report FINAL DIAGNOSIS A. PAP SMEAR (SUREPATH) CE: SPECIMEN ADEQUACY: Satisfactory for evaluation; transformation zone absent/insufficient. INTERPRETATION: NEGATIVE FOR INTRAEPITHELIAL LESION OR MALIGNANCY. Electronically Signed Out By: SHANTAL Sierra(ASCP) The Pap test is a screening test primarily for squamous cancers and precursors and has associated false-negative and false-positive results. New technologies such as liquid-based preparations may decrease but will not eliminate all false-negative results. Regular sampling and follow-up of unexplained clinical signs and symptoms are recommended to minimize false negative results. CLINICAL HISTORY Date of Last Menstrual Period: 06-13-2022 Menstrual History: Other Clinical Conditions: Screening Pap SPECIMEN SOURCE A: PAP SMEAR (SUREPATH) CE Patient Name: RCOW WARE : 2000 (Age: 22) Sex: F Institution: [facility] Location: [facility] Date of Collection: 08/14/2022 Date of Reported: 08/19/2022 15:03 Results to: Ayesha Orozco CNM Ayesha Orozco CNM CYTOLOGY ORDERABLES Final Result SEE NARRATIVE from Last 3 Months or Most Recently Relevant to Health Maintenance Insurance [address] [place] [address] [place] [address] [place] [address] [facility] [address] [employer] [facility] [address] [facility] [place] [facility] [place] [address] [place] [address] [employer] [address] [employer] [place] [address] [place] [address] [employer] [address] [employer] [place] [address] [employer] [facility] Advance Directives For more information, please contact: [phone] (9AM - 5PM [facility], Thursday-Thursday) Documents on File Type Date Recorded Patient Sales Support Coordinator Expl anation Healthcare Proxy 03/30/2023 2:49 PM * Full Code (Latest Code Status on File) Date Activated Date Inactivated Comments 03/27/2023 11:21 PM Question Answer Comments Code Status Confirmed With: Patient Care Teams Share Dairy Farmer Relationship Specialty Start Date End Date Pcp, Unknown PCP - General 08/14/22 Additional Source Comments The information contained in this document represents components of the legal health record. It is not the complete legal health record.[facility]
--- OUTSIDE RECORDS SUMMARY | 2025-02-28 15:00 | XMS_ITS ---
Author Name [facility] Organization Unknown Care Team Organization Name Specialty Phone Email Start Date End Da te [facility] Kathy Conde Primary Care 09/29/2022 024 [facility] Ivy Gray Primary Care 04/01/20222023
--- OUTSIDE RECORDS SUMMARY | 2025-02-28 15:00 | XMS_ITS | Encounter Summary ---
Author Organization [facility] Address [address] [place] [address] Care Team Providers Care Railroad Wheels And Axle Inspector Name Role Phone Geeta Sanders Primary Care Provider [phone] Encounter Details Date Type Department Care Team (Latest Contact Info) Description 02/07/[address] [facility] - Main Lab [address] [place] [address] Misael Bailey MD [address] [address] Encounter for gynecological examination (general) (routine) without abnormal findings Social History Tobacco Use Types Packs/Day Years [...] on file documented as of this encounter Procedures Procedure Name Priority Date/Time Associated Diagnosis Comments PAP SMEAR Routine 02/06/2025 12:00 AM EDT Encounter for gynecological examination (general) (routine) without abnormal findings documented in this encounter Results * Pap smear (02/06/2025 12:00 AM EDT) Interpretation Negative for intraepithelial lesion or malignancy 02/22/2025 9:29 AM EDT [facility] ([facility]) [facility] at 0929 EDT General Categorization Negative 02/22/2025 9:29 AM EDT [facility] LMP 02/22/2025 9:29 AM EDT [facility] Comment:nexplanon Specimen Adequacy Satisfactory for evaluation, endocervical/connelly sformation zone component present 02/22/2025 [facility] Pap Methodology Liquid Based Pap Test 02/22/2025 9:29 AM EDT [facility] Disclaimer Note: This pap test could not be imaged utilizing the Pluto.TV Imaging System and required a manual review. The Pap test is a screening test which carries an inherent false negative rate. These test results should be correlated with the patient's clinical findings and history. This Pap test was processed using an automated screening system. Technical cytopathology services provided by [facility], at [address] [place] [address] (CLIA # [id number]/Otilia Hendrix MD, Stone Gang Sawyer.) 02/22/2025 9:29 AM EDT [facility] Console Pap Interpretation Reported 02/22/2025 9:29 AM [facility] Brushing/Spatula Cervix uteri structure / Unknown 02/06/2025 02/07/2025 6:50 AM EDT us Misael Bailey MD LAB CYTOLOGY ORDERABLES Final Result [facility]) [facility] [address] [place] [address], documented in this encounter Visit Diagnoses Diagnosis Encounter for gynecological examination (general) (routine) without abnormal findings documented in this encounter Care Teams Railroad Wheels And Axle Inspector Relationship Specialty Start Date End Date Geeta Sanders [address] [place] [phone] PCP - General Family Medicine 02/07/25 documented as of this encounter
--- OUTSIDE RECORDS SUMMARY | 2025-02-28 15:00 | XMS_ITS | Clinical Summary ---
Author Organization [facility] Address [address] [place] [phone] Phone Care Team Providers Care Trustee Of Estate Name Role Phone Rosalinda Mckeon MD Primary Care Provider Unavailabl e Immunizations Immunization Administration Dates Next Due DTaP 5 09/14/2002, 0,1998,1998 ,1998 H1N1 04/26/2009 Hep B, ped/adol 1998,1998,1998 Hib (PRP-T) 04/09/1999,1998,1998 ,1998 IPV 09/14/2002,07/30/1999 Influenza, injectable, trivalent 02/28/2008 MMR 09/14/2002,02/05/1999 OPV 1998,1998 Varicella 01/01/2009,02/05/1999 Family History Relation Name Status Comments Father Father: Depress ion, Schizophrenia Half-Brother Half brother (M ): Asthma Half-Sister Alive Half sister (M) : Alive and well Maternal Grandfather Materna l grandfather: Hypertension Maternal Grandmother Materna l grandmother: Diabetes mellitus Mother Mother: Depress ion Social History Tobacco Use Types Packs/Day Years Used Date Smoking Tobacco: Never Assessed Comments Unknown Sex and Gender Information Value Date Recorded Sex Assigned at Not on file Legal Sex Female 4:30 PM EDT Gender Identity Not on file Sexual Orientation Not on file Plan of Treatment Health Maintenance Due Date Last Done Comments DTaP,Tdap,and Td Vaccines (6 - Tdap) 2009 09/14/2002, 07/30/1999, 1998, Additional history exists Influenza Vaccines (#1) 2024 02/28/2008 HPV Vaccines (1 - 3-dose SCDM series) 2025 COVID-19 Vaccine ( season) 2025 Hepatitis B Vaccines Completed 1998, 1998, 1998 HIB Vaccines Completed 04/09/1999, 06/26, 1998, Additional history exists IPV Vaccines Completed 09/14/2002, 11/1999, 1998, Additional history exists MMR Vaccines Completed 09/14/2002, 02/05/1999 Varicella Vaccines Completed 01/01/2009, 02/05/1999 Hepatitis A Vaccines Aged Out No long er eligible based on patient's age to complete this topic Men B Vaccine Aged Out No longer elig ible based on patient's age to complete this topic Meningococcal Vaccine Aged Out No wilfrido mayo eligible based on patient's age to complete this topic Pneumococcal Vaccine Aged Out No long er eligible based on patient's age to complete this topic Care Teams Trustee Of Estate Relationship Specialty Start Date End Date Rosalinda Mckeon MD PCP - General 01/02/17
== END 2025-02-28 12:38 | disposition home or self-care (01) ==
PROVIDERS: Visit Provider Obstetrics & Gynecology
DX: N63.14 Unspecified lump in the right breast, lower inner quadrant (principal)
CPT/HCPCS: 99213

== ENCOUNTER → 2025-02-28 11:56 | Outpatient (BNVA) | payer OTHER, SELFPAY | PROVIDERS: Visit Provider Obstetrics & Gynecology | DX: N63.14 Unspecified lump in the right breast, lower inner quadrant (principal) | CPT/HCPCS: 99212 ==

== ENCOUNTER 2025-03-16 10:52 | Outpatient (REF) | payer OTHER, SELFPAY ==
--- NOTE | ~2025-03-16 | US_ITS ---
EXAMINATION: US DIAGNOSTIC ULTRASOUND BREAST, RIGHT CLINICAL INFORMATION: 25-year-old female here for right breast lower inner quadrant palpable pea-sized lump small bubble.. COMPARISON: Comparison is made with relevant prior imaging. TECHNIQUE: Ultrasound of the breast is performed with real-time conn scale imaging and color Doppler. FINDINGS: Targeted color Doppler ultrasound scanning in the right lower inner quadrant area of patient's palpable lump demonstrates normal follicular breast tissue. There is no sonographic abnormal finding to correlate with the patient's palpable lump. US/US breast RT limited IMPRESSION: No sonographic abnormal finding to correlate with the patient's P size palpable lump. Recommend clinical evaluation and follow-up. If clinical concern persists breast MRI could be considered for further evaluation. Breast MRI would need to be ordered by the patient's providing clinician. ASSESSMENT: BI-RADS 1: Negative RECOMMENDATION: Recommend clinical evaluation and followup Electronically signed by: Bebe Luevano DO 03/16/2025 11:41 AM EDT
--- OUTSIDE RECORDS SUMMARY | 2025-03-16 13:25 | XMS_ITS | Clinical Summary ---
Author Organization [facility] Address [address] [place] [phone] Phone Care Team Providers Care Gas Specialist Name Role Phone Rosalinda Mckeon MD Primary [...] age to complete this topic Care Teams Gas Specialist Relationship Specialty Start Date End Date Rosalinda Mckeon MD PCP - General 01/02/17
--- OUTSIDE RECORDS SUMMARY | 2025-03-16 13:25 | XMS_ITS | Clinical Summary ---
Author Organization Located Within [facility] Address [address] [place] [address] Phone Care Team Providers Care Software Product Manager Name Role Phone Pcp, Unknown Primary Care [...] Active ferrous sulfate 325 mg (65 mg confederated goshute iron) tablet Take 1 tablet by mouth [...] third trimester labs, normal Level II at [facility] (for incomplete views). Assessment & Plan (11/24/2022 [...] regular movement. Level II schedule 12/02 at [facility] for limited views x 2 - she [...] doing well. Sleep has been a little medical research tech than usual, sleeps all night but feels like she is tossing and turning a lot. Discussed sleep hygiene, could try magnesium supplement or benadryl as needed. 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 BMI > 50 (at 36 weeks or [...] 49 at 36w, ok for delivery at [facility]. Growth scan ordered today. Assessment & Plan [...] . Immunizations Immunization Administration Dates Next Due [id number] 04/09/1999, 9,1998,03/12 Dtap, 5 Pertussis Antigens 09/14/2002,,1998,05/15,1998 [id number] FORMULATION 04/26/2009 HPV,quadrivalent 04/21/2011,03/26/2010, 0 Hepatitis B [...] AM EDT) HCV NON-REACTIV E NON-REACTI VE [facility] Blood 08/28/2022 10:4 4 AM EDT 08/28/2022 11:00 AM EDT [facility] BLOOD ORDERABLES Final Resul t [address] [address] * Pap Test (08/14/2022 12:00 AM EDT) 08/14/2022 08/15/2022 10: 08 AM EDT Narrative SEE NARRATIVE - 08/19/2022 3:03 PM EDT [address] [address] Contract Admin: Dinorah Ocampo MD HIGHWAY MAINTENANCE CREW WORKER Cytology Report FINAL DIAGNOSIS A. PAP SMEAR [...] A: PAP SMEAR (SUREPATH) CE Patient Name: CROW WARE : 2000 (Age: 22) Sex: F Institution: [facility] Location: [facility] Date of Collection: 08/14/2022 Date of Reported: 08/19/2022 15:03 Results to: Ayesha Orozco CNM Ayesha Orozco CNM CYTOLOGY ORDERABLES Final Result SEE NARRATIVE from Last 3 Months or Most Recently Relevant to Health Maintenance [place] [address] [place] [address] [place] [address] [address] [employer] [facility] [facility] [address] [facility] [employer] [facility] [place] [address] [place] [address] [employer] [address] [employer] [place] [address] [place] [address] [employer] [address] HE[employer]Y PART[employer]SHIP [place] [address] [place] [address] [employer] [facility] ACO Advance Directives For more information, please contact: [phone] (9AM - 5PM [facility], Thursday-Thursday) Documents on File Type Date Recorded Patient Heel Seater Expl anation Healthcare Proxy 03/30/2023 2:49 PM * Full Code (Latest Code Status on File) Date Activated Date Inactivated Comments 03/27/2023 11:21 PM Question Answer Comments Code Status Confirmed With: Patient Care Teams Software Product Manager Relationship Specialty Start Date End Date Pcp, Unknown PCP - General 08/14/22 Additional Source Comments The information contained in this document represents components of the legal health record. It is not the complete legal health record.Located Within [facility]
--- OUTSIDE RECORDS SUMMARY | 2025-03-16 13:25 | XMS_ITS | Encounter Summary ---
Author Organization [facility] Address [address] [place] [address] Care Team Providers Care Certified Cytotechnologist Name Role Phone Geeta Sanders Primary Care Provider [phone] Encounter Details Date Type Department Care Team (Latest Contact Info) Description 02/07/2025 Lab Requisition [facility] - Main Lab [address] [place] [address] Misael Bailey MD [address] [address] Encounter for gynecological examination (general) [...] lesion or malignancy 02/22/2025 9:[address] [facility] at 0929 EDT General Categorization Negative 02/22/2025 9:[address] [facility] LMP 02/22/2025 9:[address] [facility] Comment:nexplanon Specimen Adequacy Satisfactory for evaluation, endocervical/connelly sformation zone component present 02/22/2025 9:[facility] Pap Methodology Liquid Based Pap Test 02/22/2025 9:[address] [facility] Disclaimer Note: This pap test could not be imaged utilizing the allGreenup Imaging System and required a manual review. The Pap test is a screening test which carries an inherent false negative rate. These test results should be correlated with the patient's clinical findings and history. This Pap test was processed using an automated screening system. Technical cytopathology services provided by [facility], at [address] [place] [address] (CLIA # [id number]/Otilia Hendrix MD, Edge Runner.) 02/22/2025 9:[address] [facility] Console Pap Interpretation Reported 02/22/2025 9:29 AM [facility] Brushing/Spatula Cervix uteri structure / Unknown 02/06/2025 02/07/2025 6:50 AM EDT us Misael Bailey MD LAB CYTOLOGY ORDERABLES Final Result [id number]) [facility] [address] [place] [address], documented in this encounter Visit Diagnoses Diagnosis Encounter for gynecological examination (general) (routine) without abnormal findings documented in this encounter Care Teams Certified Cytotechnologist Relationship Specialty Start Date End Date Geeta Sanders [address] [place] [phone] PCP - General Family Medicine 02/07/25 documented as of this encounter
--- OUTSIDE RECORDS SUMMARY | 2025-03-16 13:25 | XMS_ITS | Encounter Summary ---
Author Organization [facility] Address [address] [place] [address] Phone Care Team Providers Care Unhairing Machine Operator Name Role Phone Rosalinda Mckeon MD Primary Care Provider Unavailabl e Encounter Details Date Type Department Care Team (Late st Contact Info) Description 2017 Conversion Encounter [facility] - [address] [address] Social History Tobacco Use Types Packs/Day Years [...] on filedocumented in this encounter Care Teams Unhairing Machine Operator Relationship Specialty Start Date End Date Rosalinda Mckeon MD PCP - General 01/02/17 documented as of this encounter
--- OUTSIDE RECORDS SUMMARY | 2025-03-16 13:25 | XMS_ITS | Clinical Summary ---
Author Organization [facility] [address] [facility] Address [address] [place] [phone] Phone Care Team Providers Care Rendering Equipment Tender Name Role Phone Geeta Sanders Primary Care Provider [phone] Allergies No known active allergies Medications [...] 01/18/2017 Overview (04/27/2024): 01/01/17: hg 10.9 at [facility] Vitamin D deficiency 08/06/2011 Overview (04/27/2024): 19.8 3/12 5/14: 16, rx for vitamin d supplement sent to pharmacy Acanthosis nigricans 07/18/2011 Acne 01/23/2010 Morbid obesity with BMI of 4 5.0-49.9, adult ([facility] V24, [facility] V28) Encounters Date Type Department Care Team Description 02/07/2025 Lab Requisition [facility] - Main Lab [address] [place] [address] Misael Bailey MD Encounter for gynecological examination (general) (routine) without abnormal findings from Last 3 Months Immunizations Immunization Administration Dates Next Due DTaP (Infanrix) 6wks to less than 7yo ,07/30/1999,1998,05/15,1998 [id number] (Pentacel) 2mo to less than 5yo 04/09/1999,1998,1998,03/12 [...] Surgery Date Site/Laterality Comments CHOLECYSTECTOMY 05/06/2017 PROCEDURE: NM LAPAROSCOPY SURG CHOLECYSTECTOMY; COMMENT: [facility] Medical History Medical History Date Comments Vitamin D deficiency 08/06/2011 DX:Vitamin D deficiency; COMMENT: 19.8 08/03 10/05: 16, rx for vitamin d supplement sent to pharmacy Morbid obesity ([facility] V24, [facility] V28) 04/22/2018 DX:Morbid obesity (HCC) 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 Iron deficiency anemia 01/18/2017 DX:Iron d eficiency anemia; COMMENT: 01/01/17: hg 10.9 at [facility] Acne 01/23/2010 DX:Acne Acanthosis nigricans 07/18/2011 [...] lesion or malignancy 02/22/2025 9:[address] [facility] at 0929 EDT General Categorization Negative 02/22/2025 9:[address] [facility] LMP 02/22/2025 9:[address] [facility] Comment:nexplanon Specimen Adequacy Satisfactory for evaluation, endocervical/connelly sformation zone component present 02/22/2025 9:[address] [facility] Pap Methodology Liquid Based Pap Test 02/22/2025 9:[address] [facility] Disclaimer Note: This pap test could not be imaged utilizing the [employer]jive Imaging System and required a manual review. The Pap test is a screening test which carries an inherent false negative rate. These test results should be correlated with the patient's clinical findings and history. This Pap test was processed using an automated screening system. Technical cytopathology services provided by [facility], at [address] [place] [address] (CLIA # [id number]/Otilia Hendrix MD, Pharmacist Intern.) 02/22/2025 9:29 AM [facility] Console Pap Interpretation Reported 02/22/2025 9:[address] [facility] Brushing/Spatula Cervix uteri structure / Unknown 02/06/2025 02/07/2025 6:50 AM EDT Misael Bailey MD LAB CYTOLOGY ORDERABLES Final Result [facility] [address] [place] [address], * Depression Screening (12/05/2023) Depression Screening Abstracted [...] Recently Relevant to Health Maintenance Care Teams Rendering Equipment Tender Relationship Specialty Start Date End Date Geeta Sanders [address] [place] [phone] PCP - General Family Medicine 02/07/25
--- OUTSIDE RECORDS SUMMARY | 2025-03-16 13:26 | XMS_ITS | Data Portability ---
Author Organization RAFIQ Coleman [facility], [address] Address [address] [place] [address] Care Team Providers [facility] First Coat Sander Name Role Phone [facility] Primary Care Provider Assessment No assessment recorded. Plan of Treatment Reminders Order Date Submit Date Provider Last Modified By Organization Details Last Modified Time Details Appointments None recorded. Lab urinalysis, dipstick 2022 023 [place] [address], [address] [place] [address], [phone], 3 12:25:59 test, urine 2022 023 [place] [address] 20[address], [address] [place] [address], [phone], 3 12:25:59 glucose, fingerstick , blood 2022 023 [place] [address] 2[address], [address] [place] [address], [phone], 3 12:25:59 culture, urine 2022 023 [facility], [address] [place] [address], [place], [address], 3 20:06:07 Referral None recorded. Procedures None recorded. Surgeries None recorded. Imaging None recorded. Medication Orders nitrofurant oin monohydrate /macrocryst als 100 mg capsule 2022 023 [email or web address] [id number], [id number] [facility], [place], [address], 10:07:56 Patient TargetsNo targets recorded. Patient Instructions Encounter Date Encounter Id Patient Instructions Last Modified By Organization Details Last Modified Time 06/26/2022 [id number] You are going to be treated for a Urinary Tract Infection. The following are recommendations to help with your symptoms and recovery: 1. Drink Plenty of fluids - Stay hydrated 2. Finish full antibiotic course 3. I recommend starting a Probiotic - I recommend Florastor 4. If you take Azo - this will help the burning and urgency feeling - just be aware it will turn your urine bright yellow. I would not hesitate to be seen again if you develop: 1. Severe Back Pain 2. Abdominal Pain 3. Nausea and Vomiting 4. Vaginal Discharge or Bleeding 5. Fever > 101.0 You symptoms should improve within 72 hours for a typically UTI. If a urine culture was sent out to the lab for you we should get the results back within 4 days. This will be able to prove that your symptoms are caused by a UTI and it will also verify that the correct antibiotic was prescribed. Thank you for using [facility] - please don't hesistate to call our office if you have any questions or concerns. [email or web address] Not available 06/26/2022 12:25:57 09/16/2023 [id number] Anxiety is a nor mal reaction to stress. Difficult situations can cause you to have symptoms such as sweaty palms and a nervous feeling. In an anxiety disorder, the symptoms are far more severe. Constant worry, muscle tension, trouble sleeping, nausea and diarrhea, and other symptoms can make normal daily activities difficult or impossible. These symptoms may occur for no reason, and they can affect your work, school, or social life. Medicines, counselling, and self-care can all help. How can you care for yourself at home? Take medicines exactly as directed. Call your doctor or nurse call line if you think you are having a problem with your medicine. Go to your counselling sessions and follow-up appointments. Recognize and accept your anxiety. Then, when you are in a situation that makes you anxious, say to yourself, This is not an emergency. I feel uncomfortable, but I am not in danger. I can keep going even if I feel anxious. Be kind to your body: Relieve tension with exercise or a massage. Get enough rest. Avoid alcohol, caffeine, nicotine, and illegal drugs. They can increase your anxiety level and cause sleep problems. Learn and do relaxation techniques. See below for more about these techniques. Engage your mind. Get out and do something you enjoy. Go to a funny movie, or take a walk or hike. Plan your day. Having too much or too little to do can make you anxious. Keep a record of your symptoms. Discuss your fears with a good friend or family member, or join a support group for people with similar problems. Talking to others sometimes relieves stress. Get involved in social groups, or volunteer to help others. Being alone sometimes makes things seem worse than they are. Get at least 2 hours of exercise a week to relieve stress. Walking is a good choice. You also may want to do other activities, such as running, swimming, cycling, or playing tennis or team sports. Relaxation techniques Do relaxation exercises 10 to 20 minutes a day. You can play soothing, relaxing music while you do them, if you wish. Tell others in your house that you are going to do your relaxation exercises. Ask them not to disturb you. Find a comfortable place, away from all distractions and noise. Lie down on your back, or sit with your back straight. Focus on your breathing. Make it slow and steady. Breathe in through your nose. Breathe out through either your nose or mouth. Breathe deeply, filling up the area between your navel and your rib cage. Breathe so that your belly goes up and down. Do not hold your breath. Breathe like this for 5 to 10 minutes. Notice the feeling of calmness throughout your whole body. As you continue to breathe slowly and deeply, relax by doing the following for another 5 to 10 minutes: Tighten and relax each muscle group in your body. You can begin at your toes and work your way up to your head. Imagine your muscle groups relaxing and becoming heavy. Empty your mind of all thoughts. Let yourself relax more and more deeply. Become aware of the state of calmness that surrounds you. When your relaxation time is over, you can bring yourself back to alertness by moving your fingers and toes and then your hands and feet and then stretching and moving your entire body. Sometimes people fall asleep during relaxation, but they usually wake up shortly afterward. Always give yourself time to return to full alertness before you drive a car or do anything that might cause a car crash if you are not fully alert. Never play a relaxation tape while you drive a car. [email or web address] Not available 09/16/2023 10:31:44 Reason for Referral None Reported. Results Created Date Observation Date Name Description Value Unit Range Abnormal Flag Note LastModifiedBy Organization Detail LastModifiedTime 06/26/1906/30/2022 URINE CULTU RE, ROUTI NE urine culture, routine FINAL REPORT abnormal Not Available [facility] ([facility]) [address], [place], [address], 06/30/2022 16:06:49 06/26/1906/30/2022 URINE CULTU RE, ROUTI NE result 1 ESCHER ICHIA COLI abnormal Multi -Drug Resis tant Organ ism Susce ptibi lity profi le is consi stent with a proba ble ESBL. 50,00 0-100 ,000 colon y formi ng units per mL Not Available [facility] ([facility]) [address], [place], [address], 06/30/2022 16:06:49 06/26/19 23 06/30/2022 URINE CULTU RE, ROUTI NE antimicrobia l susceptibili ty COMMEN T S = Susce ptibl e; I = Inter media te; R = Resis tant P = Posit dick; N = Negat dick MICS are expre ssed in micro grams per mL Antib iotic RSLT# 1 RSLT# 2 RSLT# 3 RSLT# 4 Amoxi cilli n/Cla vulan ic Acid S Ampic illin R Cefaz bertha R Cefep doni R Ceftr iaxon e R Cefur oxime R Cipro floxa natalia S Ertap enem S Genta micin S Imipe nem S Levof loxac in S Merop enem S Nitro furan toin S Piper acill in/Ta zobac adair S Tetra cycli ne S Tobra mycin S Trime thopr im/So lfa S Not Available [facility] ([facility]) [address], [place], [address], 06/30/2022 16:06:49 06/26/19 23 06/27/2022 ZACHARY Gresham NOTE please note Commen t The date and/o r time of colle ction was not indic ated on the requi sitio n as requi red by state and [place]inda [place] law. The date of recei pt of the speci men was used as the colle ction date if not suppl ied. Not Available [facility] ([facility]) [address], [place], [address], 06/29/2022 20:06:07 06/26/19 23 06/26/2022 gluco se, finge rstic k, blood blood sugar - non fasting 75 mg/dL 80-140 = normal Not Available [address], [place], [address], 06/26/2022 11:24:25 06/26/19 23 06/26/2022 gluco se, finge rstic k, blood blood sugar - fasting mg/dL 80-125 = normal Not Available [facility] [address], [place], [address], 06/26/2022 11:24:25 06/26/19 23 06/26/2022 pregn moises test, urine Unknown Analyte Normal = Negati ve Not Available [facility] [address], [place], [address], 06/26/2022 11:08:43 06/26/19 23 06/26/2022 pregn moises test, urine Unknown Analyte negati ve Not Available [facility] [address], [address], 06/26/2022 11:08:43 06/26/19 23 06/26/2022 urina lysis , dipst ick Unknown Analyte Normal = light yellow Not Available [address], [place], [address], 06/26/2022 11:08:24 06/26/19 23 06/26/2022 urina lysis , dipst ick Unknown Analyte Bacon Not Available [address] [place], [place] [address], [place], [address], 06/26/2022 11:08:24 06/26/19 23 06/26/2022 urina lysis , dipst ick Unknown Analyte Normal = clear Not Available [address], [place], [address], 06/26/2022 11:08:24 06/26/19 23 06/26/2022 urina lysis , dipst ick Unknown Analyte Slight ly Cloudy Not Available [address], [place], [address], 06/26/2022 11:08:24 06/26/19 23 06/26/2022 urina lysis , dipst ick Unknown Analyte Normal = negati ve Not Available [facility] [address], [place], [place], [address], 06/26/2022 11:08:24 06/26/19 23 06/26/2022 urina lysis , dipst ick Unknown Analyte 100 mg/dL Not Available [address], [place], [address], 06/26/2022 11:08:24 06/26/19 23 06/26/2022 urina lysis , dipst ick Unknown Analyte Normal = Negati ve Not Available [address], [place], [address], 06/26/2022 11:08:24 06/26/19 23 06/26/2022 urina lysis , dipst ick Unknown Analyte Small Not Available [address], [place], [address], 06/26/2022 11:08:24 06/26/19 23 06/26/2022 urina lysis , dipst ick Unknown Analyte Normal = Negati ve Not Available [address], [place], [address], 06/26/2022 11:08:24 06/26/19 23 06/26/2022 urina lysis , dipst ick Unknown Analyte Negati ve Not Available [address], [place], [address], 06/26/2022 11:08:24 06/26/19 23 06/26/2022 urina lysis , dipst ick Unknown Analyte Normal = 1.010, 1.015, 1.020 Not Available [address], [place], [address], 06/26/2022 11:08:24 06/26/19 23 06/26/2022 urina lysis , dipst ick Unknown Analyte 1.030 Not Available [address], [place], [address], 06/26/2022 11:08:24 06/26/19 23 06/26/2022 urina lysis , dipst ick Unknown Analyte Normal = Negati ve Not Available [address] [place] [address], [place], [address], 06/26/2022 11:08:24 06/26/19 23 06/26/2022 urina lysis , dipst ick Unknown Analyte Negati ve Not Available [address], [place], [address], 06/26/2022 11:08:24 06/26/19 23 06/26/2022 urina lysis , dipst ick Unknown Analyte Normal = 6.5, 7.0, 7.5, 8.0 Not Available [facility] [address], [place], [address], 06/26/2022 11:08:24 06/26/19 23 06/26/2022 urina lysis , dipst ick Unknown Analyte 5.0 Not Available [address], [place], [address], 06/26/2022 11:08:24 06/26/19 23 06/26/2022 urina lysis , dipst ick Unknown Analyte Normal = Negati ve Not Available [address], [place], [address], 06/26/2022 11:08:24 06/26/19 23 06/26/2022 urina lysis , dipst ick Unknown Analyte 100 mg/dL Not Available [facility] [address], [place], [address], 06/26/2022 11:08:24 06/26/19 23 06/26/2022 urina lysis , dipst ick Unknown Analyte Normal = 0.2, 1.0 Not Available [address], [place], [address], 06/26/2022 11:08:24 06/26/19 23 06/26/2022 urina lysis , dipst ick Unknown Analyte 1.0 E.U./d L Not Available [address], [place], [address], 06/26/2022 11:08:24 06/26/19 23 06/26/2022 urina lysis , dipst ick Unknown Analyte Normal = Negati ve Not Available [address] [place], [address], 06/26/2022 11:08:24 06/26/19 23 06/26/2022 urina lysis , dipst ick Unknown Analyte Positi ve Not Available [address], [place], [address], 06/26/2022 11:08:24 06/26/19 23 06/26/2022 urina lysis , dipst ick Unknown Analyte Normal = Negati ve Not Available [address] [place], [address], 06/26/2022 11:08:24 06/26/19 23 06/26/2022 urina lysis , dipst ick Unknown Analyte Negati ve Not Available [address] [place], [address], 06/26/2022 11:08:24 Result Notes None recorded. Problems No Known Problems Procedures Surgical History Date Name Laterality Status Provider Name and Address Organization Details Recorded Time cholecystectomy completed Neena Hein PA - [facility] 06/26/2022 11:02:13 Imaging Results None recorded. Procedure Notes None recorded. Medical Equipment None Reported. Allergies No known drug allergies Medications Name Sig Start Date Stop Date Status Note LastModified by Organization Details LastModified Time dicloxacill in 500 mg capsule TAKE ONE CAPSULE BY MOUTH FOUR TIMES A DAY FOR 10 DAYS 09/15 completed Not Available Not Available Not Available Apri 0.15 mg-0.03 mg tablet TAKE 1 TABLET BY MOUTH DAILY FOR 28 DAYS 06/26 completed Not Available Not Available Not Available metronidazo le 0.75 % (37.5 mg/5 gram) vaginal gel USE 1 APPLICATO RFUL VAGINALLY AT BEDTIME FOR 5 DAYS 06/26 completed Not Available Not Available Not Available clotrimazol e 1 % vaginal cream APPLY 1 APPLICATO RFUL VAGINALLY AT BEDTIME 06/26 completed Not Available Not Available Not Available sulfamethox azole 800 mg-trimetho prim 160 mg tablet TAKE ONE TABLET BY MOUTH TWICE A DAY FOR 3 DAYS 06/26 completed Not Available Not Available Not Available docusate sodium 100 mg capsule TAKE ONE CAPSULE BY MOUTH TWICE A DAY 09/15 completed Not Available Not Available Not Available omeprazole 20 mg capsule,del ayed release TAKE ONE CAPSULE BY MOUTH EVERY DAY 06/26 completed Not Available Not Available Not Available naproxen 500 mg tablet TAKE 1 TABLET BY MOUTH TWICE A DAY NEEDED FOR PAIN 09/15 completed Not Available Not Available Not Available nitrofurant oin monohydrate /macrocryst als 100 mg capsule Take 1 capsule twice a day by oral route for 7 days. 09/15 completed Not Available Not Available Not Available Ashlyna 0.15 mg-30 mcg (84)/10 mcg(7) tablets,3 month dose pack TAKE ONE TABLET BY MOUTH EVERY DAY FOR 3 MONTHS 06/26 completed Not Available Not Available Not Available Ashlyna 09/15 completed Not Available Not Available Not Available Ozempic 0.25 mg or 0.5 mg (2 mg/3 mL) subcutaneou s pen injector INJECT 0.25MG INTO THE SKIN ONE TIME PER WEEK 09/15 completed Not Available Not Available Not Available Vitals Date Recorded Body height Body mass index (BMI) Body weight Pain severity - 0-10 verbal numeric rating [Score] - Reported Body temperature Oxygen saturation Oxygen saturation in Arterial blood by Pulse oximetry Heart rate Systolic And Diastolic Provider Name and Address Organization Details Last Updated DateTime 3 157.48 cm 44.6 kg/m2 877471. 54 g 0 97.7 [degF] 97 % 97 % 90 /min 101/65 mm[Hg] Neena CONROY - [facility] 3 11:05:42 Date Recorded Body height Body mass index (BMI) Body weight Oxygen saturation Oxygen saturation in Arterial blood by Pulse oximetry Heart rate Respiratory rate Body temperature Systolic And Diastolic Provider Name and Address Organization Details Last Updated DateTime 4 162.56 cm 42.9 kg/m2 857541. 09 g 100 % 100 % 74 /min 16 /min 96.7 [degF] 100/60 mm[Hg] Mirta Hi Mercedes [facility] 10:07:22 Social History Question Answer Notes LastModified by [employer] Details LastModified Time Tobacco Smoking Status Never Smoker [facility] 06/26/2022 11:02:01 Have You Had A Flu Shot This Season? Yes Information not available 09/16/2023 What Was The Date Of Your Most Recent Tobacco Screening? 09/16/2023 Information not available 09/16/2023 Have You Recently Traveled Abroad? No Information not available 06/26/2022 Sex: Unknown Functional Status Question Answer Note LastModified by [employer] Details LastModified Time How many times per week do you consume alcohol? Less than 1 time per week Information not available 06/26/2022 Do you use any illicit or recreational drugs? No Information not available 06/26/2022 Do you or have you ever used any other forms of tobacco or nicotine? No Information not available 06/26/2022 What is your level of alcohol consumption? Occasional Information not available 06/26/2022 Mental Status None recorded. Family History Relationship Description Onset Age of this Age Resolved Age Notes LastModified by Organization Details LastModified Time Father No current problems or disability [email or web address] Not available 06/26 11:01:41 Father Diabetes mellitus [email or web address] Not available 2023 10:08:15 Mother No current problems or disability [email or web address] Not available 06/26 11:01:41 Medical History No medical history recorded. Gynecological History Statement/Question Response Date of LMP 08/20/2023 Is there any chance of ? No LMP Approximate Obstetrics History GPAL:G 0 P 0 0 0 0 Immunizations Vaccine Type Date Status Note Provider Nam e and Address Organization Details Recorded Time IPV 0 completed [facility] 06/26/2022 10:59:56 IPV 3 completed Neena Monfette null, PA - [facility] 06/26/2022 10:59:56 Influenza, MDCK, quadrivalent, PF 0 completed Neena Monfette null, PA - [facility] 06/26/2022 10:59:56 MMR 3 completed Neena Monfette null, PA - [facility] 06/26/2022 10:59:56 MMR 9 completed Neena Monfette null, PA - [facility] 06/26/2022 10:59:56 COVID-19, mRNA, LNP-S, PF, 30 mcg/0.3 mL dose 1 completed Neena Monfette null, PA - [facility] 06/26/2022 10:59:56 Tdap 5 completed Neena Monfette null, PA - [facility] 06/26/2022 10:59:56 Tdap 5 completed Neena Monfette null, PA - [facility] 06/26/2022 10:59:56 Tdap 7 completed Neena Monfette null, PA - [facility] 06/26/2022 10:59:56 Tdap 0 completed Neena Monfette null, PA - [facility] 06/26/2022 10:59:56 varicella 9 completed Neena Monfette null, PA - [facility] 06/26/2022 10:59:56 varicella 9 completed Neena Monfette null, PA - [facility] 06/26/2022 10:59:56 OPV, trivalent 8 completed Neena Monfette null, PA - [facility] 06/26/2022 10:59:56 OPV, trivalent 8 completed Neena Monfette null, PA - [facility] 06/26/2022 10:59:56 Influenza, split virus, trivalent, preservative 3 completed Neena Monfette null, PA - [facility] 06/26/2022 10:59:56 Influenza, split virus, trivalent, preservative 0 completed Neena Monfette null, PA - [facility] 06/26/2022 10:59:56 Influenza, split virus, trivalent, preservative 8 completed Neena Monfette null, PA - [facility] 06/26/2022 10:59:56 Influenza, split virus, trivalent, preservative 4 completed Neena Monfette null, PA - [facility] 06/26/2022 10:59:56 Influenza, split virus, trivalent, preservative 6 completed Neena Monfette null, PA - [facility] 06/26/2022 10:59:56 Influenza, split virus, trivalent, preservative 1 completed Neena Monfette null, PA - [facility] 06/26/2022 10:59:56 Influenza, split virus, trivalent, PF 5 completed Neena Monfette null, PA - [facility] 06/26/2022 10:59:56 HPV, quadrivalent 0 completed Neena Monfette null, PA - [facility] 06/26/2022 10:59:56 HPV, quadrivalent 0 completed Neena Monfette null, PA - [facility] 06/26/2022 10:59:56 HPV, quadrivalent 1 completed Neena Monfette null, PA - [facility] 06/26/2022 10:59:56 Hep B, adolescent or pediatric 9 completed Neena Monfette null, PA - [facility] 06/26/2022 10:59:56 Hep B, adolescent or pediatric 8 completed Neena Monfette null, PA - [facility] 06/26/2022 10:59:56 Hep B, adolescent or pediatric 8 completed Neena Monfette null, PA - [facility] 06/26/2022 10:59:56 Hib (HbOC) 9 completed Neena Monfette null, PA - [facility] 06/26/2022 10:59:56 Hib (HbOC) 8 completed Neena Monfette null, PA - [facility] 06/26/2022 10:59:56 Hib (HbOC) 9 completed Neena Monfette null, PA - [facility] 06/26/2022 10:59:56 Hib (HbOC) 8 completed Neena Monfette null, PA - [facility] 06/26/2022 10:59:56 meningococcal MCV4P 6 completed Neena Monfette null, PA - [facility] 06/26/2022 10:59:56 meningococcal MCV4P 0 completed Neena Monfette null, PA - [facility] 06/26/2022 10:59:56 DTaP 9 completed Neena Monfette null, PA - [facility] 06/26/2022 10:59:56 DTaP 0 completed Neena Monfette null, PA - [facility] 06/26/2022 10:59:56 DTaP 3 completed Neena Monfette null, PA - [facility] 06/26/2022 10:59:56 DTaP 8 completed Neena Monfette null, PA - [facility] 06/26/2022 10:59:56 DTaP 8 completed Neena Monfette null, PA - [facility] 06/26/2022 10:59:56 Influenza, split virus, quadrivalent, PF 7 completed Neena Monfette null, PA - [facility] 06/26/2022 10:59:57 MMR 3 completed Mirta Hi null, PA - [facility] 09/16/2023 10:07:43 Tdap 3 completed Mirta Hi null, PA - [facility] 09/16/2023 10:07:43 Influenza, split virus, quadrivalent, PF 3 completed RAFIQ Rodriguez [facility] 09/16/2023 10:07:43 Past Encounters Encounter ID Performer Location Encounter Start Date Encounter Closed Date Diagnosis/Indication Diagnosis SNOMED-CT Code Diagnosis ICD10 Code Diagnosis IMO Codes Diagnosis Note [id number] [facility] [address] [place] [address] 08/26/2021 09:08:01 08/26/2021 10:28:00 [id number] [address] [address] [place] [address] 12/09/2019 10:15:05 12/09/2019 10:27:26 [id number] [address] [address] [address] [place] [address] 09/02/2021 10:18:55 09/02/2021 17:21:50 [id number] [address] [facility] [address] [place] [address] 11/09/2020 10:23:03 11/09/2020 11:11:36 [id number] [address] [address] [place] [address] 10/23/2019 13:37:31 10/23/2019 14:01:24 [id number] [address] [address] [place] [address] 02/22/2018 09:32:17 02/22/2018 10:42:23 [id number] [address] [place] [address] 05/09/2020 10:10:01 05/09/2020 12:42:57 [id number] [address] [place] [address] 12/15/2021 09:04:58 12/15/2021 09:47:07 [id number] [address] [place] [address] 04/16/2019 10:31:37 04/16/2019 10:57:51 [id number] [address] [place] [address] 04/08/2022 10:32:02 04/08/2022 19:07:43 [id number] [address] [address] [place] [address] 10/19/2019 14:58:07 10/19/2019 15:23:47 [id number] [address] [place] [address] 06/08/2019 14:42:55 06/08/2019 15:46:46 [id number] [address] [place] [address] 10/23/2020 10:01:56 10/23/2020 11:08:31 [id number] [address] [place] [address] 02/15/2020 13:53:52 02/15/2020 14:37:42 [id number] RAFIQ POPE [address] [place] [address] 06/26/2022 09:34:40 06/26/2022 12:28:22 Dysuria [id number] R30.0 Took Azo - urine dip showed glucose - checked random glucose to make sure no evidence of diabetes. Was wnl. [id number] RAFIQ STEVENS [address] [place] [address] 09/16/2023 09:30:31 09/16/2023 10:33:11 Anxiety 66129513 F41.9 Health Concerns Section Related Observation LastModified by Organization Detai ls LastModified Time None Recorded Concern Status LastModified by Organization Details LastModified Time None Recorded Advance Directives Directive None Recorded Payers Insurance Date Sequence Insurance Name Policy Number Policy Gomez Covered Member ID Gomez Member ID Guarantor Name 09/16/2023 1 [facility] (MEDICAID REPLACEMENT - HMO) SUDHIR Todd Ware [id number] Todd Ware Notes Date Note Type Note Provider Name and Address Organization Details Recorded Time 06/26/2022 text/html Urinary Complain t FemaleReported by PatientUrinary problemsFor uti symptoms, patient reportspain during urination,urgency,urina ry frequency, andrecurrent utibut reportsno blood in the urine,no vaginal discharge,no pain in the flank,no fever/chills,no incontinence,no recurrent uti, andno known exposure to std. For source of patient information, patient reportsinformation obtained from patientandpatient arrived at urgent care ambulatory. For severity, patient reportsmoderate. For duration, patient reports1 days. For modifying factors, patient reportsotc medication.Azo give relief. Last UTI was about 4-5 months ago. Does get UTI frequently. No blood in the urine. No flank or back pain. No fever. 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 Pt denies fever, jaw pain, ear involvement, facial paralysis, rash or other sx's. RAFIQ STEVENS [address] [place], [id number], [place] - [facility] 09/16/2023 10:33:33 OBGyn Episode No OBEpisode recorded.
== END 2025-03-16 10:53 | disposition home or self-care (01) ==
LOC: HO.MAMMO 10:52
PROVIDERS: Visit Provider Obstetrics & Gynecology
DX: N63.14 Unspecified lump in the right breast, lower inner quadrant (principal)
CPT/HCPCS: 76642

== ENCOUNTER → 2025-03-16 11:00 | Outpatient (BNV) | payer OTHER, SELFPAY | PROVIDERS: Visit Provider Internal Medicine | DX: N63.14 Unspecified lump in the right breast, lower inner quadrant (principal) | CPT/HCPCS: 76642 ==